=== PATIENT | female | born 1990 | race Caucasian/White ===

== ENCOUNTER 2023-09-24 08:29 | Emergency (ER) | payer SELFPAY ==
[2023-09-24 08:35] VITALS: BP 124/55; PULSE 77; RESP 18; TEMP 37.1; O2SAT 98; BMI 28.3
--- NOTE | 2023-09-24 08:40 | ED.GENADUL1 ---
HPI - General Adult General Chief complaint: Upper Respiratory Infection Stated complaint: SORE THROAT Time Seen by Provider: 09/24/23 08:30 Source: patient Mode of arrival: walk-in Limitations: no limitations History of Present Illness HPI narrative: 32-year-old female presents for sore throat. It started the night before last and it hurts more when she swallows. Her son is being seen for the same issue. No fever or vomiting. Related Data Allergies Allergy/AdvReac Type Severity Reaction Status Date / Time codeine Allergy Unknown Verified 09/24/23 08:35 Review of Systems ROS Narrative A ten point review of systems is negative except as noted above. PFSH PFSH Social History Smoking status: Never smoker Exam Narrative Exam Narrative: Nurses note and vital signs reviewed and patient is not hypoxic. General: The patient appears well and in no apparent distress. Patient is resting comfortably on cart. Skin: Warm, dry, no pallor noted. There is no rash noted. Head: Normocephalic, atraumatic Eye: Normal conjunctiva, no drainage Ears, Nose, Mouth, and Throat: oral mucosa is moist. Nares patent. minimal pharyngeal erythema. No exudate. Cardiovascular: Regular Rate and Rhythm Respiratory: Patient is in no distress, no accessory muscle use, lungs are clear to auscultation, no wheezing, rales or rhonchi Back: non-tender GI: soft and nontender Musculoskeletal: The patient has no evidence of calf tenderness, no pitting edema, symmetrical pulses noted bilaterally Neurological: A&O, normal speech Psychiatric: Cooperative Constitutional Vital Signs, click to edit/add: Last Vital Signs Temp 98.7 F 09/24/23 08:35 Pulse 77 09/24/23 08:35 Resp 18 09/24/23 08:35 BP 124/55 09/24/23 08:35 Pulse Ox 98 09/24/23 08:35 O2 Del Method Room Air 09/24/23 08:35 Course Vital Signs Vital signs: Vital Signs Temperature 98.7 F 09/24/23 08:35 Pulse Rate 77 09/24/23 08:35 Respiratory Rate 18 09/24/23 08:35 Blood Pressure 124/55 09/24/23 08:35 Pulse Oximetry 98 09/24/23 08:35 Oxygen Delivery Method Room Air 09/24/23 08:35 Temperature 98.7 F 09/24/23 08:35 Pulse Rate 77 09/24/23 08:35 Respiratory Rate 18 09/24/23 08:35 Blood Pressure 124/55 09/24/23 08:35 Pulse Oximetry 98 09/24/23 08:35 Oxygen Delivery Method Room Air 09/24/23 08:35 Medical Decision Making MDM Narrative Medical decision making narrative: Strep test is negative. Antibiotic not indicated. Treatment diagnosis and follow-up were discussed with the patient. Differential Diagnosis Differential Diagnosis: strep throat, viral pharyngitis, tonsillitis Lab Data Lab results reviewed: Yes I reviewed the patient's lab results Labs: Lab Results 09/24/23 Range/Units 08:43 Streptococcus Screen Negative Discharge Plan Discharge Chief Complaint: Upper Respiratory Infection Clinical Impression: Viral pharyngitis Patient Disposition: Home, Self-Care Time of Disposition Decision: 09:29 Condition: Good Mode of Transportation: Private Vehicle Instructions: Pharyngitis (ED) Stand Alone Forms: Portal Instructions Referrals: Physician,Non-Staff, MD [Primary Care Provider] - 1 week
[2023-09-24 09:08] LABS: Internal Control Within Normal Limits; Strep A Antigen Screen Negative
== END 2023-09-24 09:41 | disposition home or self-care (01) ==
PROVIDERS: Emergency Provider Emergency Medicine
DX: J02.9 Acute pharyngitis, unspecified (principal)
CPT/HCPCS: 87070; 87880; 99283

== ENCOUNTER 2024-03-30 22:03 | Emergency (ER) | payer OTHER, SELFPAY ==
[2024-03-30 22:09] VITALS: BP 114/77; PULSE 87; TEMP 36.8; O2SAT 96; BMI 28.3
--- NOTE | 2024-03-30 22:32 | ED_ITS ---
HPI - URI/Sore Throat General Chief Complaint: Upper Respiratory Infection Stated Complaint: URTI Time Seen by Provider: 03/30/24 22:22 Source: patient Limitations: no limitations History of Present Illness HPI Narrative: 33-year-old female presented for nasal congestion and drainage. She lost her sense of taste and was worried she might have COVID. She has 6 children and one of them has a heart defect and she wanted to be sure it is not COVID. No fever or productive cough or vomiting. Symptoms present for few days. Related Data Previous Rx's ?Medication ?Instructions ?Recorded fluticasone propionate 50 1 spray intranasal BID #16 grams 03/30/24 mcg/actuation nasal spray,suspension loratadine 5 mg-pseudoephedrine ER 1 tab PO Q12H PRN nasal congestion 03/30/24 120 mg tablet,extended #20 tabs release,12hr (Claritin-D 12 Hour) Allergies Allergy/AdvReac Type Severity Reaction Status Date / Time codeine Allergy Unknown Verified 03/30/24 22:11 Review of Systems ROS Narrative A ten point review of systems is negative except as noted above. PFSH PFSH Social History Smoking status: Never smoker Exam Narrative Exam Narrative: Nurses note and vital signs reviewed and patient is not hypoxic. General: The patient appears well and in no apparent distress. Patient is resting comfortably on cart. Skin: Warm, dry, no pallor noted. There is no rash noted. Head: Normocephalic, atraumatic Eye: Normal conjunctiva, no drainage Ears, Nose, Mouth, and Throat: oral mucosa is moist. Nares patent. No pharyngeal erythema or exudate. She has nasal congestion. Cardiovascular: Regular Rate and Rhythm Respiratory: Patient is in no distress, no accessory muscle use, lungs are clear to auscultation, no wheezing, rales or rhonchi Back: non-tender GI: Nontender Musculoskeletal: No joint swelling Neurological: Awake and alert Psychiatric: Cooperative Constitutional Vital Signs, click to edit/add: Last Vital Signs Temp 98.3 F 03/30/24 22:09 Pulse 87 03/30/24 22:09 Resp 18 03/30/24 22:09 BP 114/77 03/30/24 22:09 Pulse Ox 96 03/30/24 22:09 O2 Del Method Room Air 03/30/24 22:09 Course Vital Signs Vital signs: Vital Signs Temperature 98.3 F 03/30/24 22:09 Pulse Rate 87 03/30/24 22:09 Respiratory Rate 18 03/30/24 22:09 Blood Pressure 114/77 03/30/24 22:09 Pulse Oximetry 96 03/30/24 22:09 Oxygen Delivery Method Room Air 03/30/24 22:09 Temperature 98.3 F 03/30/24 22:09 Pulse Rate 87 03/30/24 22:09 Respiratory Rate 18 03/30/24 22:09 Blood Pressure 114/77 03/30/24 22:09 Pulse Oximetry 96 03/30/24 22:09 Oxygen Delivery Method Room Air 03/30/24 22:09 MDM - URI/Sore Throat MDM Narrative Medical decision making narrative: COVID test is negative. My clinical impression is that she has environmental allergies and should be treated symptomatically. Treatment diagnosis and follow-up were discussed with the patient. Differential Diagnosis Differential diagnosis: Likely upper respiratory infection and other (Allergies, COVID) Lab Data Attestation: I reviewed the patient's lab results. Labs: Lab Results 03/30/24 Range/Units 22:40 SARS-CoV-2 Ag (CV2AG) Negative (NEGATIVE) Discharge Plan Discharge Stand Alone Forms: Portal Instructions Chief Complaint: Upper Respiratory Infection Clinical Impression: Environmental allergies Patient Disposition: Home, Self-Care Time of Disposition Decision: 23:00 Condition: Good Mode of Transportation: Private Vehicle Prescriptions / Home Meds: New Claritin-D 12 Hour 5-120 mg tablet extended release 12 hr 1 tab PO Q12H PRN (Reason: nasal congestion) Qty: 20 0RF fluticasone propionate 50 mcg/actuation spray,suspension 1 spray intranasal BID Qty: 16 0RF Rx Instructions: administer into each nostril Print Language: Turkish Instructions: Allergies (ED), How to Use Nasal [place] (ED) Referrals: Physician,Non-Staff, MD [Primary Care Provider] - 1 week
[2024-03-30 22:57] LABS: SARS-CoV-2 Ag NEGATIVE (NEGATIVE)
[2024-03-30 23:04] VITALS: BP 120/76; PULSE 65; O2SAT 100
== END 2024-03-30 23:04 | disposition home or self-care (01) ==
PROVIDERS: Emergency Provider Emergency Medicine
DX: T78.49XA Other allergy, initial encounter (principal); Z20.822 Contact with and (suspected) exposure to COVID-19
CPT/HCPCS: 87811; 99283

== ENCOUNTER 2024-04-15 08:04 | Emergency (ER) | payer OTHER, SELFPAY ==
[2024-04-15 08:08] VITALS: BP 128/74; PULSE 73; TEMP 36.9; O2SAT 99; BMI 28.3
--- NOTE | 2024-04-15 08:19 | ECG_ITS ---
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
--- NOTE | 2024-04-15 08:19 | XR_ITS ---
The [address] [address] Patient Name: CORTEZ GARCIA MRN: [id number] date: 1990 Sex: F Assigned Patient Location: ER Current Patient Location: ED.MAIN Accession/Order Number: [id number] Exam Date: 04/15/2024 08:42 Report Date: 04/15/2024 09:04 At the request of: NAWAF RAYMUNDO Procedure: XR chest 1V EXAMINATION: XR chest 1V HISTORY: CP COMPARISON: No relevant comparison available. TECHNIQUE: Portable FINDINGS: LUNGS: No significant pulmonary parenchymal abnormalities. VASCULATURE: No increased pulmonary vasculature. PLEURA: No pneumothorax, effusion, or pleural thickening. CARDIAC: No cardiomegaly or cardiac silhouette abnormality. MEDIASTINUM: No visible mass or adenopathy. BONES: No fracture or visible bone lesion. OTHER: Negative. XR/XR chest 1V IMPRESSION: No acute cardiopulmonary process Electronically authenticated by: RONEN CARBALLO Date: 04/15/2024 09:04
--- NOTE | 2024-04-15 08:21 | ED_ITS ---
HPI - Chest Pain General Chief Complaint: Chest Pain Stated Complaint: CHEST PAIN Time Seen by Provider: 04/15/24 08:05 Source: patient Mode of arrival: walk-in History of Present Illness HPI narrative: 33-year-old female presents for chest pain. Its on the right side of her chest and she has had it since yesterday. It hurts more if she pushes on the area or moves in a particular way. She does not recall any injury or heavy lifting. No shortness of breath, left-sided pain, or back pain. It is moderate and sharp. Related Data Previous Rx's ?Medication ?Instructions ?Recorded ibuprofen 800 mg tablet 800 mg PO Q8H PRN pain #20 tabs 04/15/24 methocarbamol 500 mg tablet 500 mg PO Q8H PRN pain #20 tabs 04/15/24 Allergies Allergy/AdvReac Type Severity Reaction Status Date / Time codeine Allergy Unknown Verified 03/30/24 22:11 Review of Systems ROS Narrative A ten point review of systems is negative except as noted above. PFSH PFSH Social History Smoking status: Never smoker Exam Narrative Exam Narrative: Nurses note and vital signs reviewed and patient is not hypoxic. General: The patient appears well and in no apparent distress. Patient is resting comfortably on cart. Skin: Warm, dry, no pallor noted. There is no rash noted. Head: Normocephalic, atraumatic Eye: Normal conjunctiva, no drainage Ears, Nose, Mouth, and Throat: oral mucosa is moist. Nares patent. Cardiovascular: Regular Rate and Rhythm; no palpable tenderness on the left side. There is a focal area of tenderness to palpation on the right side of her chest which reproduces her pain. No crepitus. Respiratory: Patient is in no distress, no accessory muscle use, lungs are clear to auscultation, no wheezing, rales or rhonchi Back: non-tender GI: Soft and nontender Musculoskeletal: The patient has no evidence of calf tenderness, no pitting edema, symmetrical pulses noted bilaterally Neurological: A&O, normal speech Psychiatric: Cooperative Constitutional Vital Signs, click to edit/add: Last Vital Signs Temp 98.5 F 04/15/24 08:08 Pulse 73 04/15/24 08:08 Resp 15 04/15/24 08:08 BP 128/74 04/15/24 08:08 Pulse Ox 99 04/15/24 08:08 O2 Del Method Room Air 04/15/24 08:08 Course Vital Signs Vital signs: Vital Signs Temperature 98.5 F 04/15/24 08:08 Pulse Rate 73 04/15/24 08:08 Respiratory Rate 15 04/15/24 08:08 Blood Pressure 128/74 04/15/24 08:08 Pulse Oximetry 99 04/15/24 08:08 Oxygen Delivery Method Room Air 04/15/24 08:08 Temperature 98.5 F 04/15/24 08:08 Pulse Rate 73 04/15/24 08:08 Respiratory Rate 15 04/15/24 08:08 Blood Pressure 128/74 04/15/24 08:08 Pulse Oximetry 99 04/15/24 08:08 Oxygen Delivery Method Room Air 04/15/24 08:08 MDM - Chest Pain MDM Narrative Medical decision making narrative: Her workup including EKG and chest x-ray is negative. Her pain is completely reproducible on palpation. At this point I do not suspect pulmonary embolism and there is no evidence of heart disease or pneumothorax or pneumonia. She will be discharged home on Motrin and Robaxin. Treatment diagnosis and follow- up were discussed with the patient. My clinical impression is that this is chest wall pain. Differential Diagnosis Differential diagnosis: Likely pneumothorax, unstable angina pectoris, atypical chest pain, st elevation myocardial infarction, costochondritis and chest pain Imaging Data Chest x-ray: Radiologist's impression: ITS Impressions Chest X-Ray 04/15/24 08:19 IMPRESSION: No acute cardiopulmonary process Electronically authenticated by: RONEN CARBALLO Date: 04/15/2024 09:04 ECG Data Attestation: I personally reviewed and interpreted this ECG as follows: (EKG on my interpretation shows normal sinus rhythm with no acute change and rate of 74.) Discharge Plan Discharge Stand Alone Forms: Portal Instructions Chief Complaint: Chest Pain Clinical Impression: Chest wall pain Patient Disposition: Home, Self-Care Time of Disposition Decision: 09:50 Condition: Good Mode of Transportation: Private Vehicle Prescriptions / Home Meds: New methocarbamol 500 mg tablet 500 mg PO Q8H PRN (Reason: pain) Qty: 20 0RF ibuprofen 800 mg tablet 800 mg PO Q8H PRN (Reason: pain) Qty: 20 0RF Print Language: Senegalese Instructions: Chest Wall Pain (ED) Referrals: Physician,Non-Staff, [Primary Care Provider] - 1 week
--- OUTSIDE RECORDS SUMMARY | 2024-04-15 08:32 | XMS_ITS ---
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 Facility: Payers Date Payer Category Payer Unknown [id number] 1958 Medicaid [id number] Problems Problem Classification Problem Date Documented Da te Episodic/Chronic Inflammation; infection of eye (except that caused by tuberculosis or sexually transmitteddisease) (1 source) Unspecified conjunctivitis; Translations: [UNSPECIFIED CONJUNCTIVITIS] Onset: 03-19-2023 Episodic Other eye disorders (3 sources) Other specified disorders of eye and adnexa; Translations: [OTHER SPEC DISORDERS EYE AND ADNEXA] Onset: 03-18-2023 Episodic Substance-related disorders (1 source) Nicotine dependence, cigarettes, uncomplicated; Translations: [NICOTINE DEPEND CIGARETTES UNCOMP] Onset: 03-19-2023 Chronic Summary Purpose Family History No Family History Records Found Advance Directives No Advanced Directives Records Found Additional Source Comments INFORMATION SOURCE (unrecogn ized section and content) DATE CREATED AUTHOR 03/29/2023 [facility] FOR RECORDS PERTAINING TO PATIENTS WHO ARE OR HAVE BEEN ENROLLED IN A CHEMICAL DEPENDENCY/SUBSTANCEABUSE PROGRAM, SOME INFORMATION MAY BE OMITTED. This clinical summary was aggregated from multiple sources. Caution should be exercised in using it in the provision of clinical care. This summary normalizes information from multiple sources, and as a consequence, information in this document may materially change the coding, format and clinical context of patient data. In addition, data may be omitted in some cases. CLINICAL DECISIONS SHOULD BE BASED ON THE PRIMARY CLINICAL RECORDS. [facility] [employer] [facility]. provides no warranty or guarantee of the accuracy or completeness of information in this document.
[2024-04-15] MEDS: KETOROLAC TROMETHAMINE 60 MG/2 ML VIAL IM (08:49)
== END 2024-04-15 09:54 | disposition home or self-care (01) ==
PROVIDERS: Emergency Provider Emergency Medicine
DX: R07.89 Other chest pain (principal)
CPT/HCPCS: 71045; 93005; 96372; 99284; J1885

== ENCOUNTER 2024-07-02 10:47 | Emergency (ER) | payer SELFPAY ==
[2024-07-02 10:52] VITALS: BP 121/75; PULSE 87; TEMP 36.8; O2SAT 96; BMI 28.3
[2024-07-02 11:01] VITALS: O2SAT 96
--- NOTE | 2024-07-02 11:08 | ED_ITS ---
HPI HPI - General Adult General Chief complaint: Upper Respiratory Infection Stated complaint: CHEST CONGESTION, SORE THROAT Time Seen by Provider: 07/02/24 10:52 Source: patient Mode of arrival: walk-in Limitations: no limitations History of Present Illness HPI narrative: 33-year-old female presents for cough and shortness of breath. She states she developed some allergy symptoms a few days ago and has had nasal congestion. During the night she felt tightness in her chest and feels like she is wheezing but she is also worried about having pneumonia. LMP was 2 days ago. No fever o r vomiting. Related Data Previous Rx's ?Medication ?Instructions ?Recorded albuterol sulfate 90 mcg/actuation 2 inh inhalation Q4H PRN shortness 07/02/24 aerosol inhaler of breath or wheezing #8.5 grams benzonatate 100 mg capsule 100 mg PO TID PRN cough #20 caps 07/02/24 loratadine 5 mg-pseudoephedrine ER 1 tab PO Q12H PRN nasal congestion 07/02/24 120 mg tablet,extended #20 tabs release,12hr (Claritin-D 12 Hour) Allergies Allergy/AdvReac Type Severity Reaction Status Date / Time codeine Allergy Unknown Hives Verified 07/02/24 10:51 Opioid HPI Opioid Management Most Recent Opioid Data: Last Pain Scale 5 04/15/24 08:49 Review of Systems ROS Narrative A ten point review of systems is negative except as noted above. [facility] Medical History (Updated 07/02/24 @ 12:33 by Alvino Guzman MD) Asthma ?J45.909 - Unspecified asthma, uncomplicated (ICD-10) Social History Smoking status: Never smoker Little interest or pleasure in doing things: not at all Feeling down, depressed, or hopeless: not at all Exam Narrative Exam Narrative: Nurses note and vital signs reviewed and patient is not hypoxic. General: The patient appears well and in no apparent distress. Patient is resting comfortably on cart. Skin: Warm, dry, no pallor noted. There is no rash noted. Head: Normocephalic, atraumatic Eye: Normal conjunctiva, no drainage Ears, Nose, Mouth, and Throat: oral mucosa is moist. Nares patent. Nasal congestion present. No pharyngeal erythema or exudate. Cardiovascular: Regular Rate and Rhythm Respiratory: A few scattered rhonchi present, otherwise good air movement. Back: non-tender GI: Soft and nontender Musculoskeletal: The patient has no evidence of calf tenderness, no pitting edema, symmetrical pulses noted bilaterally Neurological: Awake and alert Psychiatric: Cooperative Constitutional Vital Signs, click to edit/add: Last Vital Signs Temp 98.3 F 07/02/24 10:52 Pulse 82 07/02/24 12:47 Resp 12 07/02/24 12:47 BP 120/68 07/02/24 12:47 Pulse Ox 98 07/02/24 12:47 O2 Del Method Room Air 07/02/24 12:47 Course Vital Signs Vital signs: Vital Signs Temperature 98.3 F 07/02/24 10:52 Pulse Rate 87 07/02/24 10:52 Respiratory Rate 14 07/02/24 10:52 Blood Pressure 121/75 07/02/24 10:52 Pulse Oximetry 96 07/02/24 10:52 Oxygen Delivery Method Room Air 07/02/24 10:52 Temperature 98.3 F 07/02/24 10:52 Pulse Rate 82 07/02/24 12:47 Respiratory Rate 12 07/02/24 12:47 Blood Pressure 120/68 07/02/24 12:47 Pulse Oximetry 98 07/02/24 12:47 Oxygen Delivery Method Room Air 07/02/24 12:47 Medical Decision Making MDM Narrative Medical decision making narrative: Chest x-ray shows no acute findings per radiologist. My clinical impression is that she has environmental allergy issues. She felt improved after aerosol treatment. Treatment diagnosis and follow-up were discussed with the patient. Differential Diagnosis Differential Diagnosis: Allergies, pneumonia, URI Imaging Data Chest x-ray: Radiologist's impression: ITS Impressions Chest X-Ray 07/02/24 11:08 IMPRESSION: No acute cardiopulmonary process Electronically authenticated by: RONEN CARBALLO Date: 07/02/2024 12:18 Discharge Plan Discharge Chief Complaint: Upper Respiratory Infection Clinical Impression: Environmental allergies Patient Disposition: Home, Self-Care Time of Disposition Decision: 12:33 Condition: Good Mode of Transportation: Private Vehicle Prescriptions / Home Meds: New benzonatate 100 mg capsule 100 mg PO TID PRN (Reason: cough) Qty: 20 0RF Claritin-D 12 Hour 5-120 mg tablet extended release 12 hr 1 tab PO Q12H PRN (Reason: nasal congestion) Qty: 20 0RF albuterol sulfate 90 mcg/actuation HFA aerosol inhaler 2 inh inhalation Q4H PRN (Reason: shortness of breath or wheezing) Qty: 8.5 0RF Print Language: Bulgarian Instructions: Allergies (ED) Referrals: Physician,Non-Staff, MD [Primary Care Provider] - 1 week Discharge Date/Time: 07/02/24 12:49
--- NOTE | 2024-07-02 11:08 | XR_ITS ---
The [address] [address] Patient Name: CORTEZ GARCIA MRN: [id number] date: 1990 Sex: F Assigned Patient Location: ER Current Patient Location: ED.MAIN Accession/Order Number: [id number] Exam Date: 07/02/2024 11:33 Report Date: 07/02/2024 12:18 At the request of: NAWAF RAYMUNDO Procedure: XR chest 1V EXAMINATION: XR chest 1V HISTORY: cough COMPARISON: 04/15/2024 TECHNIQUE: AP portable erect FINDINGS: LUNGS: No significant pulmonary parenchymal abnormalities. VASCULATURE: No increased pulmonary vasculature. PLEURA: No pneumothorax, effusion, or pleural thickening. CARDIAC: No cardiomegaly or cardiac silhouette abnormality. MEDIASTINUM: No visible mass or adenopathy. BONES: No fracture or visible bone lesion. OTHER: Negative. XR/XR chest 1V IMPRESSION: No acute cardiopulmonary process Electronically authenticated by: RONEN CARBALLO Date: 07/02/2024 12:18
--- OUTSIDE RECORDS SUMMARY | 2024-07-02 11:19 | XMS_ITS | CCD ---
Author Organization [facility] Inform ion Partnership [facility] Care Team Providers Care Senior Marketing Specialist Name Role Phone AMANDA .JAKUB Consulting Unavailabl e REQUEST, DR CHRISTIANSEN LISTED Primary Care Unavaila ble JAYSHREE ., DR LAGUNAS Attending Unavailable HAY ., DR LAGUNAS Admitting Unavailable Allergies Allergy Classification Reported Allergen(s) Allergy Type Date of Onset Reaction(s) Facility (1 source) Codeine Drug Allergy 10-12-2019 [facility] Repository Problems Problem Classification Problem Date Documented Da [...] [NICOTINE DEPEND CIGARETTES UNCOMP] Onset: 03-19-2023 Chronic Encounters Encounter Date Encounter Type Care Provider Facility Start: 03-18-2023 End: 03-18-2023 ambulatory JAKUB PATEL . Facility: Payers Date Payer Category Payer Unknown [id number] 1958 Medicaid [id number] Summary Purpose Family History No Family History Records Found Advance Directives No Advanced Directives Records Found Additional Source Comments INFORMATION SOURCE (unrecogn ized section and content) DATE CREATED AUTHOR 03/29/2023 [facility] FOR RECORDS PERTAINING TO PATIENTS WHO ARE [...] BE BASED ON THE PRIMARY CLINICAL RECORDS. [facility] [email or web address] [facility]. provides no warranty or guarantee of the accuracy or completeness of information in this document.
[2024-07-02] MEDS: ALBUTEROL SULFATE 2.5 MG/3 ML VIAL NEB IH (11:26)
[2024-07-02 11:28] VITALS: O2SAT 99
[2024-07-02 12:47] VITALS: BP 120/68; PULSE 82; O2SAT 98
== END 2024-07-02 12:49 | disposition home or self-care (01) ==
PROVIDERS: Emergency Provider Emergency Medicine
DX: T78.49XA Other allergy, initial encounter (principal)
CPT/HCPCS: 71045; 94640; 99283

== ENCOUNTER 2025-05-17 12:10 | Outpatient (REF) | payer OTHER, SELFPAY ==
--- OUTSIDE RECORDS SUMMARY | 2025-05-17 15:30 | XMS_ITS | Encounter Summary ---
Author Organization [facility] Address [address] [place] [address] Care Team Providers Care Stem Assembler Name Role Phone Cam Garcia MD Primary Care Provider Reason for Visit * Reason Comments EMBX Encounter Details Date Type Department Care Team ([facility] Contact Info) Description 05/17/2025 3:30 PM EDT Procedure Visit [facility] [address] [place] [address] Vaibhav Abreu DO [address] [place] [address] Irregular menstrual cycle Social History Tobacco Use Types Packs/Day Years Used Date Smoking Tobacco: Never Assessed Comments No Sex and Gender Information Value Date Recorded Sex Assigned at Not on file Legal Sex Female 11:17 AM EDT Gender Identity Not on file Sexual Orientation Not on file documented as of this encounter Last Filed Vital Signs Vital Sign Reading Time Taken Comments Blood Pressure 120/80 05/17/2025 4:04 PM EDT Pulse - - Temperature - - Respiratory Rate - - Oxygen Saturation - - Inhaled Oxygen Concentration - - Weight 67.6 kg (149 lb) 05/17/2025 4:04 PM EDT Height - - Body Mass Index 27.25 04/29/2025 8:33 AM EDT documented in this encounter Progress Notes * Barbara Byers NP - 05/17/2025 3:30 PM EDT Reason for Appointment: Patient ID: Karis Duval is a 34 y.o. female who presents for EMBX Patient presents today for a Endometrial Biopsy appointment. MEDICATIONS Current Outpatient Medications Medication Instructions FLUoxetine (PROZAC) 20 mg, Daily RT ALLERGIES Allergies Allergen Reactions Acetaminophen Hives PROBLEMS Active Ambulatory Problems Diagnosis Date Noted No Active Ambulatory Problems Resolved Ambulatory Problems Diagnosis Date Noted No Resolved Ambulatory Problems No Additional Past Medical History HISTORY PAST MEDICAL HISTORY SOCIAL HISTORY No past medical history on file. Social History Tobacco Use Smoking status: Not on file Smokeless tobacco: Not on file Substance Use Topics Alcohol use: Not on file Drug use: Not on file FAMILY HISTORY No family history on file. SURGICAL HISTORY Past Surgical History: Procedure Laterality Date LAPAROSCOPIC TUBAL LIGATION W/ FILCHIE CLIPS Bilateral 2020 Done in [place] REVIEW OF SYSTEMS Review of Systems: Review of Systems Constitutional: Negative. HENT: Negative. Eyes: Negative. Respiratory: Negative. Cardiovascular: Negative. Gastrointestinal: Negative. Genitourinary: Positive for menstrual problem, pelvic pain and vaginal bleeding. Musculoskeletal: Negative. Skin: Negative. Neurological: Negative. All other systems reviewed and are negative. Hematological: Negative. Endocrine: Negative. Allergic/Immunologic: Negative. OBJECTIVE Objective: Physical Exam Genitourinary: Genitourinary Comments: Endometrial biopsy with sample obtained. Patient tolerated well. Vitals: Estimated body mass index is 27.25 kg/m?? as calculated from the following: Height as of 04/29/25: 5' 2 . Weight as of this encounter: 149 lb. BP: 120/80 Patient's last menstrual period was 04/30/2025. ASSESSMENT & PLAN Assessment/Plan Encounter Diagnosis: ICD-10-CM 1. Irregular menstrual cycle N92.6 POCT , urine manually resulted Tissue exam Procedures EMBX: Patient was placed in dorsal lithotomy position with feet in stirrups. A sterile speculum was placed into the vagina and the cervix was visualized. The cervix was grasped with a single tooth tenaculum. The endometrial pipette was placed through the cervix into the uterus, endometrial curettage was performed and sampling was obtained, endometrial curettings were placed in formalin, and single tooth tenaculum was removed. Excellent hemostasis was assured. All instruments were removed from vagina. Patient reports history of filshie clip placement. Discussed procedure with patient in regards to surgical management with Ablation with Salpingectomy. Patient is doing well but has complaints of bleeding and pelvic pain. Patient has tried hormone therapy in the past but all attempts to subside patients issues have failed. I have discussed conservative management vs. surgical management with the patient in detail and patient desires surgical management at this time. Patient will undergo Endometrial Ablation with [place] and bilateral salpingectomy. Documented by Barbara Byers NP on behalf of: Vaibhav Abreu DO documented in this encounter Plan of Treatment Upcoming Encounters Date Type Department Care Team (Late st Contact Info) Description 06/02/2025 3:40 PM EDT Office Visit [facility] [address] [place] [address] Vaibhav Abreu DO [address] [place] [address] Scheduled Orders Name Type Priority Associated Diagnoses Orde r Schedule Tissue exam Pathology and Cytology Routine Irregular menstrual cycle Ordered: 05/17/2025 documented as of this encounter Procedures Procedure Name Priority Date/Time Associated Diagnosis Comments POCT , URINE Routine 05/17/2025 4:13 PM EDT Irregular menstrual cycle documented in this encounter Results * POCT , urine manually resulted (05/17/2025 4:13 PM EDT) Preg Test, Ur Negative Negative Urine 05/17/2025 4:13 PM EDT Vaibhav Abreu DO POINT OF CARE TEST ENTER/EDIT OR DERABLES Final Result documented in this encounter Visit Diagnoses Diagnosis Irregular menstrual cycle documented in this encounter Care Teams Stem Assembler Relationship Specialty Start Date End Date Cam Garcia MD [address] [place] [address] PCP - General Family Medicine 04/29/25 documented as of this encounter
--- OUTSIDE RECORDS SUMMARY | 2025-05-19 12:14 | XMS_ITS | Encounter Summary ---
Author Organization [facility] [employer] [facility] Address [id number] [address] [place] [address] Care Team Providers Care Waste Cotton Cleaner Name Role Phone Cam Garcia Primary Care Provider [phone] Encounter Details Date Type Department Care Team (Late st Contact Info) Description 10/05/2024 Telephone [facility] - Family Medicine [address] [place] [phone] Brittnee Lopez CMA Social History Tobacco Use Types Packs/Day Years Used Date Smoking Tobacco: Every Day Cigarettes 0.2 6.1 Started: 10/21/2003; Last attempted to quit: 10/21/2008 Smokeless Tobacco: Never Comments:Off and on smoker f rom [id number]. She would stop smoking with her pregnancies then restart Alcohol Use Standard Drinks/Week Comments Yes 0 (1 standard drink = 0.6 oz pur e alcohol) occasional [employer] Utilities Answer Date Recorded In the past 12 months has [employer] electric, gas, oil, or water company threatened to shut off services in your home? No 07/15/2024 Social Connection and Isolat ion Panel [NHANES] Answer Date Recorded In a typical week, how many times do you talk on the phone with family, friends, or neighbors? More than three times a week 07/15/2024 How often do you get togethe r with friends or relatives? Twice a week 07/15/2024 How often do you attend chur ch or christianity services? Never 07/15/2024 Do you belong to any clubs o r organizations such as denominational groups, unions, fraternal or athletic groups, or school groups? No 07/15/2024 How often do you attend meet ings of the clubs or organizations you belong to? Never 07/15/2024 Are you , , di vorced, , never , or living with a partner? 07/15/2024 AUDIT-C Answer Date Recorded Q1: How often do you have a drink containing alc ohol? 2-4 times a month 07/15/2024 Q2: How many drinks containi ng alcohol do you have on a typical day when you are drinking? 3 or 4 07/15/2024 Q3: How often do you have si x or more drinks on one occasion? Never 07/15/2024 Overall Financial Resource Strain (CARDIA) Answe r Date Recorded How hard is it for you to pa y for the very basics like food, housing, medical care, and heating? Not hard at all 07/15/2024 PHQ-2 Answer Date Recorded Total Score 11 07/15/2024 [facility] ional [facility] - Occupational Stress Questionnaire Answer Date Recorded Do you feel stress - tense, restless, nervous, or anxious, or unable to sleep at night because your mind is troubled all the time - these days? Rather much 07/15/2024 Exercise Vital Sign Answer Date Recorde d On average, how many days pe r week do you engage in moderate to strenuous exercise (like a brisk walk)? 3 days 07/15/2024 On average, how many minutes do you engage in exercise at this level? 30 min 07/15/2024 PRAPARE - Transportation Answer Date Re corded In the past 12 months, has l ack of transportation kept you from medical appointments or from getting medications? No 06/22 In the past 12 months, has l ack of transportation kept you from meetings, work, or from getting things needed for daily living? No 07/15/2024 Housing Instability Answer Date Recorde d Are you worried or concerned that in the next two months you may not have stable housing that you own, rent or stay in as a part of a household? No 07/15/2024 Childcare Answer Date Recorded Do problems getting child ca re make it difficult for you to work or study? No 07/15/2024 Employment Answer Date Recorded Do you need help finding a [facility] career center and/or a training program? No 07/15/2024 Hunger Screening Answer Date Recorded Within the past 12 months we worried whether our food would run out before we got money to buy more. Sometimes True 024 Within the past 12 months th e food we bought just didn't last and we didn't have money to get more. Sometimes True 07/15/2024 Purpose - Life Answer Date Recorded I have a purpose and direction in my life. Stron gly Agree 07/15/2024 Comments Unknown Sex and Gender Information Value Date Recorded Sex Assigned at Not on file Legal Sex Female 11:48 AM EDT Gender Identity Not on file Sexual Orientation Not on file documented as of this encounter Miscellaneous Notes * Telephone Encounter - Brittnee Lopez CMA - 10/05/2024 10:05 AM EST ----- Message from Dr. Cam Garcia DO sent at 10/05/2024 10:01 AM EST ----- Her pulmonary function study was essentially normal but when she did use a bronchodilator it did help so she can use the albuterol as needed for now. Keep follow up appointment in the spring I called pt and called both numbers on file could not leave message. It said number had be disconnected documented in this encounter Plan of Treatment Upcoming Encounters Date Type Department Care Team (Late st Contact Info) Description 06/03/2025 9:00 AM EDT Office Visit [facility] - Family Medicine [address] [place] [address] Cam Garcia DO [address] [place] [address] documented as of this encounter Visit Diagnoses Not on filedocumented in this encounter Additional Health Concerns Assessment Noted Time PHQ-9 Depression Total Score: 11 024 10:12 AM EDT documented as of this encounter Care Teams Waste Cotton Cleaner Relationship Specialty Start Date End Date Cam Garcia DO [address] [place] [address] PCP - General Family Medicine 07/15/24 documented as of this encounter
--- OUTSIDE RECORDS SUMMARY | 2025-05-19 12:14 | XMS_ITS | Encounter Summary ---
Author Organization [facility] [facility] Address [id number] [address] [place] [address] Care Team Providers Care Double Head Machine Operator Name Role Phone Cam Garcia Primary Care Provider Encounter Details Date Type Department Care Team (Late st Contact Info) Description 01/13/2025 Telephone [facility] - Family Medicine [address] [place] [phone] Brittnee Lopez CMA Social History Tobacco Use Types Packs/Day Years Used Date Smoking Tobacco: Every Day Cigarettes 0.2 6.1 Started: 10/21/2003; Last attempted to quit: 10/21/2008 Smokeless Tobacco: Never Comments:Off and on smoker f rom [id number]. She would stop smoking with her pregnancies then restart Alcohol Use Standard Drinks/Week Comments Yes 0 (1 standard drink = 0.6 oz pur e alcohol) occasional [facility] Utilities Answer Date Recorded In the past 12 months has [employer] electric, gas, oil, or water company threatened [...] often do you attend chur ch or orthodoxy services? Never 07/15/2024 Do you belong to any clubs o r organizations such as latter day groups, unions, fraternal or athletic groups, or [...] Answer Date Recorded Total Score 11 07/15/2024 [facility] of Occupat ional Health - Occupational Stress [...] Recorded Do you need help finding a [facility] career center and/or a training program? [...] Telephone Encounter - Brittnee Lopez CMA - 01/13/2025 3:20 PM EDT Prescription sent in. She is due for a wellness anytime. She was only seen once for new patient visit back in June documented in this encounter Plan of Treatment Upcoming Encounters Date Type Department Care Team (Late st Contact Info) Description 06/03/2025 9:00 AM EDT Office Visit [facility] - [facility] Medicine [address] [place] [address] Cam Garcia DO [address] [facility] [place] [address] documented as of this encounter Visit Diagnoses Not on filedocumented in this encounter Additional Health Concerns Assessment Noted Time PHQ-9 Depression Total Score: 11 024 10:12 AM EDT documented as of this encounter Care Teams Double Head Machine Operator Relationship Specialty Start Date End Date Cam Garcia DO [address] [facility] [place] [address] PCP - General Family Medicine 07/15/24 documented as of this encounter
--- OUTSIDE RECORDS SUMMARY | 2025-05-19 12:14 | XMS_ITS | Clinical Summary ---
Author Organization [facility] Address [address] [place] [address] Care Team Providers Care Bilingual Speech Language Pathologist Name Role Phone Cam Garcia MD Primary Care Provider [phone] Allergies Active Allergy Reactions Criticality Noted Date Comments Acetaminophen Hives 07/15/2024 Medications FLUoxetine (PROzac) 20 MG capsule Take 20 mg by mouth in the morning. 03/31/2025 Active Encounters Date Type Department Care Team Description 05/17/2025 3:30 PM EDT [place] [address] Vaibhav Abreu, Irregular menstrual cycle 04/29/2025 8:50 AM EDT [place] [address] Vaibhav Abreu, Irregular periods/menstrual cycles; PCOS (polycystic ovarian syndrome) 04/29/[address]amboo [address] [facility] [place] [address] Vaibhav Abreu DO 04/28/2025 Travel from Last 3 Months Social History Tobacco Use Types Packs/Day Years Used Date Smoking Tobacco: Never Assessed Comments No Sex and Gender Information Value Date Recorded Sex Assigned at Not on file Legal Sex Female 11:17 AM EDT Gender Identity Not on file Sexual Orientation Not on file Last Filed Vital Signs Vital Sign Reading Time Taken Comments Blood Pressure 120/80 05/17/2025 4:04 PM EDT Pulse - - Temperature - - Respiratory Rate - - Oxygen Saturation - - Inhaled Oxygen Concentration - - Weight 67.6 kg (149 lb) 05/17/2025 4:04 PM EDT Height 157.5 cm (5' 2 ) 04/29/2025 8:33 AM EDT Body Mass Index 27.25 04/29/2025 8:33 AM EDT Plan of Treatment Upcoming Encounters Date Type Department Care Team (Late st Contact Info) Description 06/02/2025 3:40 PM EDT Office Visit [facility] [address] [place] [phone] Vaibhav Abreu DO [address] [place] [address] Procedures Procedure Name Priority Date/Time Associated Diagnosis Comments POCT , URINE Routine 05/17/2025 4:13 PM EDT Irregular menstrual cycle from Last 3 Months Results * POCT , urine manually resulted (05/17/2025 4:13 PM EDT) Preg Test, Ur Negative Negative Urine 05/17/2025 4:13 PM EDT Vaibhav Abreu DO POINT OF CARE TEST ENTER/EDIT OR DERABLES Final Result from Last 3 Months Insurance [employer] Care Teams Bilingual Speech Language Pathologist Relationship Specialty Start Date End Date Cam Garcia MD [address] [facility] [place] [address] PCP - General Family Medicine 04/29/25
--- OUTSIDE RECORDS SUMMARY | 2025-05-19 12:23 | XMS_ITS | CCD ---
Author Organization [facility] Partnership [facility] Care Team Providers Care Tie Sawyer Name Role Phone JAKUB BURGRE Consulting Unavailabl e REQUEST, DR CHRISTIANSEN LISTED Primary Care Unavaila lucas MARTELL ., DR LAGUNAS Attending Unavailable JAYSHREE Ryan, DR LAGUNAS Admitting Unavailable Cam Garcia DO Primary Care Provider [phone] Cam Garcia DO Primary Care Provider Cam Garcia MD Primary Care Provider [phone] KRIS ABREU Attending Unavailable KRIS ABREU Attending Unavailable Kris Abreu DO Attending Provider Allergies Allergy Classification Reported Allergen(s) Allergy Type Date of Onset Reaction(s) Facility (1 source) Codeine Drug Allergy 9 [facility] Repository (5 sources) Tylenol-Codeine #2 Propensity to adverse reactions to drug 4 [facility] (3 sources) Acetaminophen Drug Allergy 4 [facility] Medications Current Medications Medication Drug Class(es) Dates Sig (Normalized) Sig (Original) albuterol-budesoni de (AIRSUPRA) 90-80 mcg/actuation HFA aerosol inhaler (2 sources) Start: 03-31-2025 take 2 puff(s) by inhalation every four hours as needed albuterol-budesonid e (AIRSUPRA) 90-80 mcg/actuation HFA aerosol inhaler Indications: Mild intermittent asthma without complication Inhale 2 puffs every 4 (four) hours as needed (wheeze, shortness of breath). 10.7 g 1 03/31/2025 Active FLUoxetine 20 mg oral capsule (11 sources) Serotonin Reuptake Inhibitor Start: 03-31-2025 take 1 capsule by mouth in the morning FLUoxetine (PROzac) 20 MG capsule Take 20 mg by mouth in the morning. 03/31/2025 Active Start: 07-15-2024 End: 03-31-2025 take 1 capsule by mouth in the morning FLUoxetine (PROzac) 10 mg capsule Take 1 capsule (10 mg total) by mouth in the morning. 30 capsule 1 01/12/2025 03/31/2025 Discontinued (Dose adjustment) Completed/Discontinued Medications Medication Drug Class(es) Dates Sig (Normalized) Sig (Original) [id number] 200 actuat albuterol 0.09 mg/actuat metered dose inhaler (5 sources) beta2-Adrenergic Agonist Start: 01-12-2025 End: 03-31-2025 take 2 puff(s) by inhalation every four hours as needed for wheezing albuterol (PROVENTIL HFA;VENTOLIN HFA) 90 mcg/actuation inhaler Inhale 2 puffs every 4 (four) hours as needed for wheezing or shortness of breath. 18 g 01/12/2025 03/31/2025 Discontinued (Therapy completed) Start: 07-04-2024 End: 01-12-2025 take 2 puff(s) by inhalation every four hours as needed albuterol (PROVENTIL HFA;VENTOLIN HFA) 90 mcg/actuation inhaler Inhale 2 puffs every 4 (four) hours as needed. 07/04/2024 01/12/2025 Discontinued (Reorder) Problems Active Problems Problem Classification Problem Date Documented Da te Episodic/Chronic Anxiety disorders (4 sources) Anxiety; Translations: [Anxiety disorder, unspecified] Onset: 03-31-2025 07-15-2024 Chronic Asthma (3 sources) Reactive airway disease; Translations: [Unspecified asthma, uncomplicated] 07-15-2024 Chronic Inflammation; infection of eye (except that caused by tuberculosis or sexually transmitteddisease) (1 source) Unspecified conjunctivitis; Translations: [UNSPECIFIED CONJUNCTIVITIS] Onset: 03-19-2023 Episodic Menstrual disorders (11 sources) Dysmenorrhea; Translations: [Menorrhagia] Onset: 03-31-2025 03-31-2025 Chronic Mood disorders (4 sources) Moderate major depression ; Translations: [Major depressive disorder, single episode, moderate] Onset: 03-31-2025 07-15-2024 Chronic Other endocrine disorders (2 sources) Polycystic ovary syndrome; Translations: [Polycystic ovarian syndrome] 04-29-2025 Chronic Other eye disorders (3 sources) Other specified disorders of eye and adnexa; Translations: [OTHER SPEC DISORDERS EYE AND ADNEXA] Onset: 03-18-2023 Episodic Other nutritional; endocrine; and metabolic disorders (1 source) Body mass index 25-29 - overweight; Translations: [Overweight] 03-31-2025 Episodic Substance-related disorders (5 sources) Nicotine dependence, cigarettes, uncomplicated; Translations: [Cigarette smoker ] Onset: 03-19-2023 07-15-2024 Chronic Past or Other Problems Problem Classification Problem Date Documented Da te Episodic/Chronic Mood disorders (5 sources) Mood disorders Onset: 07-15-2024 Resolved: 03-31-2025 07-15-2024 Other nutritional; endocrine; and metabolic disorders (1 source) Overweight; Translations: [Overweight] 07-15-2024 Episodic Unclassified (2 sources) Onset: 03-31-2025 03-31-2025 Results Test Name Value Interpretation Reference Range Facil ity HCG ( test) Ql (U)o n 05-17-2025 Interpretation and review of laboratory results Normal [facility] Healthcare Preg Test, Ur Negative Negative [facility] care [facility] Healthcar e Comprehensive metabolic pane nael 03-31-2025 Albumin [Mass/Vol] 4.7 g/dL 3.2 - 5.3 g/dL Pr [facility] ALP [Catalytic activity/Vol] 63 U/L 39 - 130 U/L [facility] ALT No additional P-5'-P [Catalytic activity/Vol] 12 U/L NINF - 31 U/L [facility] Anion gap [Moles/Vol] 11 mmol/L 5 - 15 mmol/L [facility] AST [Catalytic activity/Vol] 16 U/L NINF - 41 U/L [facility] Bilirubin [Mass/Vol] 0.2 mg/dL Low 0.3 - 1.2 mg/dL [facility] Calcium [Mass/Vol] 9.9 mg/dL 8.5 - 10.5 mg/dL [facility] Chloride [Moles/Vol] 105 mmol/L 98 - 109 mmol/L [facility] CO2 [Moles/Vol] 23 mmol/L 22 - 32 mmol/L [facility] Creatinine [Mass/Vol] 0.66 mg/dL 0.40 - 1.00 mg/dL [facility] Comment on above: METHOD TRACEABLE TO IDMS STANDARD EGFR Non-Race Dependent - PINF [facility] Comment on above: Reported eGFR is bas ed on the CKD-EPI 2020 equation that does not use a race coefficient. Glucose [Mass/Vol] 91 mg/dL 65 - 99 mg/dL [facility] Potassium [Moles/Vol] 4.2 mmol/L 3.5 - 5.0 mmol /L [facility] Protein [Mass/Vol] 7.5 g/dL 6.0 - 8.0 g/dL [facility] Sodium [Moles/Vol] 139 mmol/L 134 - 146 mmol/L [facility] Urea nitrogen [Mass/Vol] 16 mg/dL 5 - 23 mg/dL [facility] Lipid profileon 03-31-2025 Cholesterol [Mass/Vol] 204 mg/dL High 150 - 200 mg/dL [facility] Cholesterol in HDL [Mass/Vol] 63 mg/dL 39 - PINF mg/dL [facility] Comment on above: HDL <40 mg/dL - High Risk HDL > or = 40mg/dL- Desirable HDL >60 mg/dL - Negative Risk Cholesterol in HDL [Mass/Vol] 3.2 mg/dL 1.0 - 5.0 [facility] Cholesterol in LDL [Mass/Vol] 108 mg/dL NINF - 130 mg/dL [facility] Comment on above: LDL <100 mg/dL - Dani irable LDL >160 mg/dL - High Risk Cholesterol in VLDL [Mass/Vol] 33 mg/dL High 0 - 30 mg/dL [facility] Triglyceride [Mass/Vol] 163 mg/dL High 27 - 150 mg/dL [facility] No Panel Informationon 03-31 Interpretation and review of laboratory results [facility]normal [facility] System Vital Signs Date Time Vital Sign Value Performing Clinician Facility 05-17-2025 16:04-0400 Body mass index (BMI) [Ratio] 27.25 kg/m2 Kris Abreu DO Work Phone: [facility] 05-17-2025 16:04-0400 Body weight 67.59 kg Kris Lois DO Work Phone: [facility] 05-17-2025 16:04-0400 Diastolic blood pressure 80 mm[Hg] Kris Lois DO Work Phone: [facility] 05-17-2025 16:04-0400 Systolic blood pressure 120 mm[Hg] Kris Lois DO Work Phone: [facility] 04-29-2025 08:33-0400 Body height 157.5 cm Kris Lois DO Work Phone: [facility] 04-29-2025 08:33-0400 Body mass index (BMI) [Ratio] 27.07 kg/m2 Kris Lois DO Work Phone: [facility] 04-29-2025 08:33-0400 Body weight 67.13 kg Kris Lois DO Work Phone: [facility] 04-29-2025 08:33-0400 Diastolic blood pressure 72 mm[Hg] Kris Lois DO Work Phone: [facility] 04-29-2025 08:33-0400 Systolic blood pressure 118 mm[Hg] Kris Lois DO Work Phone: [facility] 03-31-2025 08:53-0400 Body height 157.5 cm Cam Furlong DO Work Phone: [facility] 03-31-2025 08:53-0400 Body mass index (BMI) [Ratio] 27.21 kg/m2 Cam Furlong DO Work Phone: [facility] 03-31-2025 08:53-0400 Body temperature 98.2 [degF] Cam Furlong DO Work Phone: [facility] 03-31-2025 08:53-0400 Body weight 67.5 kg Cam Furlong DO Work Phone: [facility] [employer] [facility] 03-31-2025 08:53-0400 Diastolic blood pressure 60 mm[Hg] Cam Furlong DO Work Phone: [facility] [employer] [facility] 03-31-2025 08:53-0400 Heart rate 88 /min Cam Furlong DO Work Phone: [facility] [employer] 03-31-2025 08:53-0400 Respiratory rate 20 /min Cam Furlong DO Work Phone: [facility] 03-31-2025 08:53-0400 SaO2% (BldA) [Mass fraction] 98 % Cam Furlong DO Work Phone: [facility] 03-31-2025 08:53-0400 Systolic blood pressure 108 mm[Hg] Cam Furlong DO Work Phone: [facility] 07-15-2024 10:20-0400 Body height 157.5 cm Cam Furlong DO Work Phone: [facility] [employer] [facility] 07-15-2024 10:20-0400 Body mass index (BMI) [Ratio] 28.53 kg/m2 Cam Furlong DO Work Phone: [facility] 07-15-2024 10:20-0400 Body temperature 98.49 [degF] Cam Furlong DO Work Phone: [facility] 07-15-2024 10:20-0400 Body weight 70.76 kg Cam Furlong DO Work Phone: [facility] [employer] [facility] 07-15-2024 10:20-0400 Diastolic blood pressure 70 mm[Hg] Cam Furlong DO Work Phone: [facility] 07-15-2024 10:20-0400 Heart rate 85 /min Cam Furlong DO Work Phone: [facility] 07-15-2024 10:20-0400 SaO2% (BldA) [Mass fraction] 95 % Cam Garcia DO Work Phone: [facility] 07-15-2024 10:20-0400 Systolic blood pressure 112 mm[Hg] Cam [facility] En[facility]ters Encounter Date Encounter Type Care Provider Facility Start: 05-17-2025 End: 05-17-2025 Departed Referred Kris Lois -LAB [facility] Start: 05-17-2025 End: 05-17-2025 ambulatory KRIS LOIS Not Available Start: 05-17-2025 End: 05-17-2025 Patient encounter procedure Kris Lois DO Work Phone: [facility] Comment on above: Irregular menstrual cycle Start: 04-29-2025 End: 04-29-2025 Bamboo flowsheet Kris Lois DO Work Phone: [facility] Start: 04-29-2025 End: 04-29-2025 Bamboo flowsheet Kris Lois DO Work Phone: [facility] Start: 04-29-2025 End: 04-29-2025 Office outpatient visit 15 minutes Kris Lois DO Work Phone: [facility] Comment on above: Irregular periods/me nstrual cycles; PCOS (polycystic ovarian syndrome) Start: 04-29-2025 End: 04-29-2025 ambulatory KRIS LOIS Not Available Start: 04-02-2025 End: 04-12-2025 Telephone encounter Brittnee Lopez CMA [facility] Physician s Internal Medicine - Family Medicine Start: 03-31-2025 End: 03-31-2025 Patient encounter status Cam Garcia DO [facility] Start: 03-31-2025 End: 03-31-2025 Periodic preventive med est patient 18-39 yrs Cam Garcia DO Work Phone: [facility] Internal Medicine - Family Medicine Comment on above: Well adult health ch david (Primary Dx); Dysmenorrhea; Anxiety; Cigarette smoker; Menorrhagia with regular cycle; Mild major depression; Mild intermittent asthma without complication; Overweight (BMI 25.0-29.9) Start: 01-12-2025 End: 01-12-2025 Refill Holly Adam [employer] [facility] Start: 09-01-2024 End: 09-01-2024 Refill Cam Garcia DO Work Phone: [facility] Internal Medicine - Family Medicine Start: 07-15-2024 End: 07-15-2024 Office outpatient new 45 minutes Cam Garcia DO Work Phone: [facility] Internal Medicine - Family Medicine Comment on above: Anxiety (Primary Dx) ; Overweight; Cigarette smoker; Moderate major depression (CMS-HCC); Reactive airway disease without complication, unspecified asthma severity, unspecified whether persistent Start: 03-18-2023 End: 03-18-2023 ambulatory PA CIELO PATEL . Facility: Procedures Date Procedure Procedure Detail Performing Clinician Start: 05-17-2025 Urine test visual color cmprsn meths Kris Lois DO Work Phone: Start: 03-31-2025 Comprehensive metabo lic panel Cam Garcia DO Work Phone: Start: 03-31-2025 Lipid panel Cam almarazlorenaldo DO Work Phone: Start: 03-31-2025 Adult depression scr eening assessment Cam Easonng DO Work Phone: Start: 07-15-2024 Adult depression scr eening assessment Cam Garcia DO Work Phone: Plan of Treatment Date Care Activity Detail Author Start: 09-30-2026 Tobacco Counseling Tobacco Counselin bhavin [facility] Start: 03-31-2026 Adult BMI Follow Up Plan Adult BMI F ollow Up Plan [facility] Start: 03-31-2026 Adult BMI Screening Adult BMI Screen ing [facility] Start: 03-31-2026 Depression Screening Depression Scre ening [facility] Start: 03-31-2026 Tobacco Screening Tobacco Screening [facility] Start: 07-15-2025 Adult BMI Screening Adult BMI Screen ing [facility] Start: 07-15-2025 Depression Screening Depression Scre ening [facility] Start: 07-15-2025 Tobacco Screening Tobacco Screening [facility] Start: 06-21-2025 Influenza vaccination Influenza Vacc ine [facility] Start: 06-03-2025 End: 06-03-2025 Patient encounter procedure 06/03/2025 9:00 AM EDT Office Visit [facility] Internal Medicine - Family Medicine [address] [place] [address] Cam Garcia, [address] [place] [address] [facility] Internal Medicine - Family [facility] Start: 06-02-2025 End: 06-02-2025 Patient encounter procedure [facility] Start: 05-17-2025 End: 05-17-2025 Patient encounter procedure 05/17/2025 3:30 PM EDT Procedure Visit [facility] [address] [place] [id number] Kris Abreu DO [address] [place] [address] [facility] Start: 04-29-2025 End: 04-29-2026 DHEA DHEA Lab Routine Irregular periods/menstrual cycles Expected: 04/29/2025 (Approximate), Expires: 04/29/2026 [facility] Comment on above: Expected: 04/29/2025 (Approximate), Expires: 04/29/2026 Start: 04-29-2025 End: 04-29-2026 US Pelvis US Pelvis w/ TV Imaging Routine Irregular periods/menstrual cycles Expected: 04/29/2025, Expires: 04/29/2026 [facility] Comment on above: Expected: 04/29/2025 , Expires: 04/29/2026 Start: 04-29-2025 End: 04-29-2025 Patient encounter procedure 04/29/2025 8:50 AM EDT Office Visit [facility] [address] [phone] Kris Abreu DO [address] [place] [address] Arrived [facility] Comment on above: Arrived Start: 01-18-2025 End: 01-18-2025 Patient encounter procedure 01/18/2025 4:15 PM EDT Office Visit [facility] Internal Medicine - Family Medicine [address] [place] [address] Cam Garcia, [address] [place] [address] [facility] Internal Medicine - Family Medicine Start: 06-21-2024 Influenza vaccination Influenza Vacc ine [facility] Start: 2012 Screening for malign ant neoplasm of cervix Pap Smear [facility] Start: 2010 DTaP,Tdap and Td Vaccines (1 - Tdap) DTaP,Tdap and Td Vaccines (1 - Tdap) [facility] Start: 2009 Adult BMI Follow Up Plan Adult BMI F ollow Up Plan [facility] Start: 1991 Tobacco Counseling Tobacco Counselin g [facility] CBC W Auto Different ial panel - Blood CBC and differential Lab Routine Irregular periods/menstrual cycles Ordered: 04/29/2025 [facility] Comment on above: Ordered: 04/29/2025 DHEA-sulfate DHEA-sulfate Lab Routine Irregular periods/menstrual cycles Ordered: 04/29/2025 [facility] Healthcare Comment on above: Ordered: 04/29/2025 Follicle stimulating hormone Follicle stimulating hormone Lab Routine Irregular periods/menstrual cycles Ordered: 04/29/2025 [facility] Comment on above: Ordered: 04/29/2025 hCG, quantitative, hCG, quantitative, Lab Routine Irregular periods/menstrual cycles Ordered: 04/29/2025 [facility] Work Phone: Comment on above: Ordered: 04/29/2025 Hemoglobin A1c/Hemoglobin.total in Blood Hemoglobin A1c Lab Routine Irregular periods/menstrual cycles Ordered: 04/29/2025 [facility] Comment on above: Ordered: 04/29/2025 Luteinizing hormone Luteinizing hormone Lab Routine Irregular periods/menstrual cycles Ordered: 04/29/2025 [facility] Comment on above: Ordered: 04/29/2025 End: 07-15-2025 Pulmonary function test Complete PFT w/ BD (Spirometry (Flow Volume Loop) pre/post short acting bronchodilator w/ DLCO (diffusion study) and Lung Volume) Pulmonary function test Complete PFT w/ BD (Spirometry (Flow Volume Loop) pre/post short acting bronchodilator w/ DLCO (diffusion study) and Lung Volume) PFT Routine Reactive airway disease without complication, unspecified asthma severity, unspecified whether persistent 1 Occurrences starting 07/15/2024 until 07/15/2025 [facility] Work Phone: Comment on above: 1 Occurrences starti ng 07/15/2024 until 07/15/2025 Thyrotropin [Units/volume] in Serum or Plasma TSH Lab Routine Irregular periods/menstrual cycles Ordered: 04/29/2025 [facility] Comment on above: Ordered: 04/29/2025 Thyroxine (T4) free [Mass/volume] in Serum or Plasma T4, free Lab Routine Irregular periods/menstrual cycles Ordered: 04/29/2025 [facility] Comment on above: Ordered: 04/29/2025 Tissue exam Tissue exam Path ology and Cytology Routine Irregular menstrual cycle Ordered: 05/17/2025 [facility] Work Phone: Comment on above: Ordered: 05/17/2025 Payers Date Payer Category Payer Private Health Insurance [facility] MEDICAID [id number] 2025 Medicaid [id number] 2024 Medicaid [employer] [id number] 2024 Medicaid [id number] 1991 Unknown [id number] 1991 Unknown [id number] 1991 Unknown [id number] 1959 Medicaid [id number] Social History Date Type Detail Facility Start: 10-21-2003 [facility] [employer] [facility] Start: 10-21-2003 End: 10-21-2008 History of tobacco use Cigarette Smoker [facility] [employer] [facility] Start: 07-15-2024 End: 03-31-2025 Cigarettes smoked current (pack per day) - [facility] Start: 07-15-2024 Tobacco use and exposure Smokeless tobacco non-user [facility] Start: 07-15-2024 End: 03-31-2025 Alcoholic beverage intake Current drinker of alcohol (finding) [facility] Start: 07-15-2024 End: 03-31-2025 [facility] Utilities [facility] Has the electric, [employer], oil, or water company threatened to shut off services in your home in past 12Mo No [facility] Are you now , , , , never or living with a partner? [facility] How often to you hav e a drink containing alcohol? 2-4 times a month [facility] How many standard drinks containing alcohol do you have on a typical day? 3 or 4 [facility] How often do you hav e 6 or more drinks on 1 occasion? Never [facility] How hard is it for y ou to pay for the very basics like food, housing, medical care, and heating Not hard at all [facility] Do you feel stress - tense, restless, nervous, or anxious, or unable to sleep at night because your mind is troubled all the time - these days [OSQ] Rather much [facility] Start: 07-15-2024 Tobacco Comment Off and on smo ker from . She would stop smoking with her pregnancies then restart [facility] Start: 07-15-2024 Alcohol Comment occasional [facility] Start: 1990 Sex assigned at Not on file P [facility] Start: 05-26-2015 Sex Female (finding) [facility] Tobacco smoking stat [facility] Tobacco smoking consumption unknown [facility] Start: 1990 Sex Assigned At Female F [facility] Functional Status Date Assessment Result Facility 03-31-2025 Total score [AUDIT-C] 3 03/31/20 9:27 AM EDT Cam Garcia, DO [facility] Clinical Notes 07-15-2024 to 05-17-2025 Barbara Byers NP - 05/17/2025 3:30 PM Aaron Monroe LPN - 04/29/2025 8:50 AM EDTTelephone Encounter - Brittnee Lopez CMA - 04/02/2025 12:19 PM EDT Note Date & Type Note Facility 05-17-2025 History of Presen t illness Narrative Reason for Appointment: Patient ID: Karis Duval [...] W/ FILCHIE CLIPS Bilateral 2020 [place] REVIEW OF SYSTEMS Review of Systems: Review [...] Vitals: Estimated body mass index is 27.25 kg/m as calculated from the following: Height as [...] by Barbara Byers NP on behalf of: Kris Abreu DO documented in this encounter [facility] 04-29-2025 History of Presen t illness Narrative Reason for Appointment: Patient ID: Karis Duval is a 34 y.o. female who presents for Menstrual Problem (Pt present today to discuss menstrual cycles. (Dr. Garcia referral) Patient wants to discuss an Endometrial Ablation w/bilateral salpingectomy.) Patient presents today for Consult appointment. MEDICATIONS Current Outpatient Medications Medication Instructions [...] W/ FILCHIE CLIPS Bilateral 2020 Done [place] REVIEW OF SYSTEMS Review of Systems: Review of Systems Constitutional: Negative. HENT: Negative. Eyes: Negative. Respiratory: Negative. Cardiovascular: Negative. Gastrointestinal: Negative. Genitourinary: Positive for menstrual problem, pelvic pain and vaginal bleeding. Musculoskeletal: Negative. Skin: Negative. Neurological: Negative. All other systems reviewed and are negative. Hematological: Negative. Endocrine: Negative. Allergic/Immunologic: Negative. OBJECTIVE Objective: Physical Exam Constitutional: Appearance: Normal appearance. She is well-developed. Cardiovascular: Rate and Rhythm: Normal rate and regular rhythm. Pulmonary: Effort: Pulmonary effort is normal. Breath sounds: Normal breath sounds. Abdominal: General: Bowel sounds are normal. There is no distension. Palpations: Abdomen is soft. Tenderness: There is no abdominal tenderness. There is no guarding or rebound. Musculoskeletal: General: No swelling. Normal range of motion. Right lower leg: No edema. Left lower leg: No edema. Neurological: Mental Status: She is alert and oriented to person, place, and time. Skin: General: Skin is warm and dry. Psychiatric: Mood and Affect: Mood normal. Behavior: Behavior normal. Vitals and nursing note reviewed. Exam conducted with a building code inspector present. Vitals: Estimated body mass index is 27.07 kg/m as calculated from the following: Height as of this encounter: 5' 2 . Weight as of this encounter: 148 lb. BP: 118/72 Patient's last menstrual period was 04/12/2025. ASSESSMENT & PLAN ICD-10-CM 1. Irregular periods/menstrual cycles N92.6 Patient presents to office today to discuss irregular cycles and salpingectomy. Patient has heavy, painful periods that last 8-9 days. Pt states she has intense cramping and has missed work due to her pain. Pt has clotting and in [place] had a salpingectomy w/FILCHE CLIPS. Discussed procedure with patient in regards to surgical management with Ablation with Salpingectomy. Patient to have labs and US will be obtained. Patient will schedule Endometrial Biopsy and US prior to leaving office today. Documented by Beth Monroe LPN on behalf of: Kris Abreu DO documented in this encounter [facility] 04-02-2025 Miscellaneous Notes Formattin g of this note might be different from the original. ----- Message from Cam Garcia DO sent at 04/02/2025 11:39 AM EDT ----- Her total cholesterol was high at 203 and your triglycerides were elevated at 163. She still has a low cardiovascular risk. I would recommend a Mediterranean diet and recheck next year. Her CMP was essentially normal. ----- Message ----- From: Raysa, Background User Sent: 03/31/2025 6:26 PM EDT To: Cam Garcia DO Patient notified documented in this encounter [facility] 04-02-2025 Telephone encount er Note ----- Message from Cam Garcia DO sent at 04/02/2025 11:39 AM EDT ----- Her total cholesterol was high at 203 and your triglycerides were elevated at 163. She still has a low cardiovascular risk. I would recommend a Mediterranean diet and recheck next year. Her CMP was essentially normal. ----- Message ----- From: Lab, Background User Sent: 03/31/2025 6:26 PM EDT To: Cam Garcia DO [facility] 04-02-2025 Telephone encount er Note Patient notified [facility] 03-31-2025 History of Presen t illness Narrative Subjective Patient ID: Karis Duval is a 34 y.o. female. Karis presents today for her annual wellness exam. She is taking the fluoxetine 10 mg daily. She was not sure if it was working or not so she stopped it and she got way worse. When she does take it it does seem to help with her emotions and stabilizes her mood but feels that she could use more improvement. She was wondering if she could increase the dose. She has lost some weight with better eating habits. She does not really have time to exercise because she works midnights and then is tired during the day. She does smoke cigarettes. She has no desire to quit smoking right now. The following portions of the patient's history were reviewed and updated as appropriate: allergies, current medications, past family history, past medical history, past social history, past surgical history, problem list, and medication reconciliation was completed including current medication and post discharge medication. Review of Systems Constitutional: Negative. HENT: Negative. Eyes: Negative. Respiratory: Negative. Gastrointestinal: Negative. Endocrine: Negative. Genitourinary: Negative. Musculoskeletal: Negative. Skin: Negative. Allergic/Immunologic: Negative. Neurological: Negative. Hematological: Negative. Psychiatric/Behavioral: Positive for dysphoric mood. The patient is nervous/anxious. Objective Physical Exam Vitals reviewed. Constitutional: General: She is not in acute distress. HENT: Head: Normocephalic. Right Ear: Tympanic membrane and external ear normal. Left Ear: Tympanic membrane and external ear normal. Ears: Comments: Mild cerumen in both ears but TMs are visible Eyes: General: No scleral icterus. Extraocular Movements: Extraocular movements intact. Conjunctiva/sclera: Conjunctivae normal. Neck: Vascular: No carotid bruit. Cardiovascular: Rate and Rhythm: Normal rate and regular rhythm. Pulses: Normal pulses. Heart sounds: Normal heart sounds. No murmur heard. Pulmonary: Effort: Pulmonary effort is normal. No respiratory distress. Breath sounds: Normal breath sounds. No wheezing, rhonchi or rales. Musculoskeletal: Cervical back: Neck supple. Lymphadenopathy: Cervical: No cervical adenopathy. Neurological: Mental Status: She is alert. Assessment/Plan Karis was seen today for annual exam. Diagnoses and all orders for this visit: Well adult health check - Lipid profile; Future - Comprehensive metabolic panel; Future - Comprehensive metabolic panel - Lipid profile Health maintenance discussed. Check CMP and lipids. She would like to establish with a local digital analytics manager for her female exams. We will send a referral to the digital analytics manager at [facility]. She declined Tdap booster Dysmenorrhea - Ambulatory referral to Obstetrics / Gynecology - Consult (Non[facility]); Future Refer to gynecology. Anxiety - FLUoxetine (PROzac) 20 mg capsule; Take 1 capsule (20 mg total) by mouth in the morning. Anxiety is improved with medication. However she could use further improvement so I am going to increase the dose to 20 mg daily. Cigarette smoker She does smoke cigarettes daily. We discussed the risks of smoking. Discussed various smoking cessation strategies. She has no desire to quit smoking right now. At least 3 minute spent discussing. Menorrhagia with regular cycle - Ambulatory referral to Obstetrics / Gynecology - Consult (Non[facility]); Future Refer to certified pathology assistant Mild major depression - FLUoxetine (PROzac) 20 mg capsule; Take 1 capsule (20 mg total) by mouth in the morning. Increase fluoxetine to 20 mg daily Mild intermittent asthma without complication - albuterol-budesonide (AIRSUPRA) 90-80 mcg/actuation HFA aerosol inhaler; Inhale 2 puffs every 4 (four) hours as needed (wheeze, shortness of breath). She has mild intermittent asthma but does have exacerbations especially in the spring. She is using a rescue inhaler with benefit. There is a new medication called air supra which is superior to just plain albuterol. It reduces risk of severe exacerbations. She would like to try it. Overweight (BMI 25.0-29.9) She is overweight. She would benefit from weight loss. Diet exercise and weight loss discussed and encouraged. She says she does not really have much time to exercise but I encouraged her to do even 5-10 minutes of exercise a day which most people could find the time to do. She has lost 8 lb since her last visit so she was congratulated on her weight loss and encouraged to continue. Patient noted to have elevated BMI and the following intervention(s) were applied: encouragement to exercise and prescribed diet education. documented in this encounter [facility] 01-12-2025 Miscellaneous Notes Formattin g of this note might be different from the original. Prescription sent in. She is due for a wellness anytime. She was only seen once for new patient visit back in June documented in this encounter [facility] 01-12-2025 Telephone encount er Note Prescription sent in. She is due for a wellness anytime. She was only seen once for new patient visit back in June [facility] 07-15-2024 History of Presen t illness Narrative Subjective Patient ID: Karis Ponce is a 33 y.o. female. Karis presents today as a new patient. She has several concerns that she would like to discuss. She has trouble falling asleep. She is a worrier. Can get sad if things don't go her way. She gets aggravated and irritable for now reason. She can't shut off her mind. She has trouble losing weight. She had an episode of abdominal pain a few months ago. It was kind around the center of her abdomen. It lasted about 4 days then resolved spontaneously. She had her tubes tied and then had clips put on. She was told by the BULL GANG SUPERVISOR that it might cause pain down the road she also has a history of ovarian cyst. It has not recurred. She did not seek help when it occurred. She is frustrated that she is unable to lose weight. She walks most every day with her children for about 30 minutes. She tries to eat healthy diet. She recently had to go to the emergency department for chest congestion and shortness a breath. She was told she had allergies. She is originally from [place] and moved up here recently. She was also having a cough. It is nonproductive. She has been smoking off and on since she was 13. She would quit when she was but then restart. She smokes about half a pack a day now. The following portions of the patient's history were reviewed and updated as appropriate: allergies, current medications, past family history, past medical history, past social history, past surgical history, problem list, and medication reconciliation was completed including current medication and post discharge medication. Review of Systems Constitutional: Negative. HENT: Negative. Eyes: Negative. Respiratory: Positive for cough and shortness of breath. Cardiovascular: Negative. Endocrine: Negative. Genitourinary: Negative. Musculoskeletal: Negative. Skin: Hair loss and thinning Neurological: Negative. Hematological: Negative. Psychiatric/Behavioral: Positive for decreased concentration, dysphoric mood and sleep disturbance. The patient is nervous/anxious. Objective Physical Exam Constitutional: General: She is not in acute distress. Appearance: Normal appearance. HENT: Head: Normocephalic. Eyes: General: No scleral icterus. Extraocular Movements: Extraocular movements intact. Conjunctiva/sclera: Conjunctivae normal. Neck: Thyroid: No thyroid mass, thyromegaly or thyroid tenderness. Cardiovascular: Rate and Rhythm: Normal rate and regular rhythm. Pulses: Normal pulses. Heart sounds: Normal heart sounds. No murmur heard. Pulmonary: Effort: Pulmonary effort is normal. No respiratory distress. Breath sounds: Normal breath sounds. No wheezing, rhonchi or rales. Abdominal: General: Bowel sounds are normal. Palpations: Abdomen is soft. Tenderness: There is no abdominal tenderness. Musculoskeletal: Cervical back: Neck supple. Lymphadenopathy: Cervical: No cervical adenopathy. Neurological: General: No focal deficit present. Mental Status: She is alert and oriented to person, place, and time. Cranial Nerves: Cranial nerves 2-12 are intact. Gait: Gait is intact. Psychiatric: Attention and Perception: Attention normal. Mood and Affect: Mood and affect normal. Speech: Speech normal. Behavior: Behavior normal. Behavior is cooperative. Thought Content: Thought content normal. Cognition and Memory: Cognition normal. Judgment: Judgment normal. Assessment/Plan Karis was seen today for new patient. Diagnoses and all orders for this visit: Anxiety Discussed various treatment options for anxiety. She would like something that would not gain weight. We will try fluoxetine 10 mg daily. Overweight She is overweight. She would benefit from weight loss. Diet exercise and weight loss discussed. We will have her come back and check for underlying causes of weight loss such as thyroid and diabetes. Cigarette smoker She was encouraged to quit smoking. She denied assistance. She feels that if she got her anxiety under better control she can quit smoking. Moderate major depression (CMS-HCC) Will start fluoxetine 10 mg daily. Reactive airway disease without complication, unspecified asthma severity, unspecified whether persistent - Pulmonary function test Complete PFT w/ BD (Spirometry (Flow Volume Loop) pre/post short acting bronchodilator w/ DLCO (diffusion study) and Lung Volume); Future - albuterol (PROVENTIL,VENTOLIN) nebulizer solution 2.5 mg Check PFTs Other orders - FLUoxetine (PROzac) 10 mg capsule; Take 1 capsule (10 mg total) by mouth in the morning. Will see her back in about 6 weeks to see how she is doing on the fluoxetine. She can call in a couple weeks if there problems or needs to increase the dose. We will also review the PFTs at that time. documented in this encounter [facility] Evaluation note Diagnosis Anxiety- Primary Anxiety state, unspecified Overweight Cigarette smoker Tobacco use disorder Moderate major depression (CMS-HCC) Major depressive disorder, single episode, moderate Reactive airway disease without complication, unspecified asthma severity, unspecified whether persistent [facility] Diagnosis Well adult health check- Primary Unspecified general medical examination Dysmenorrhea Anxiety Anxiety state, unspecified Cigarette smoker Tobacco use disorder Menorrhagia with regular cycle Mild major depression Major depressive disorder, single episode, mild Mild intermittent asthma without complication Overweight (BMI 25.0-29.9) Overweight [facility] Diagnosis Irregular periods/menstrual cycles PCOS (polycystic ovarian syndrome) Polycystic ovaries [facility] Diagnosis Irregular menstrual cycle [facility] noteNo assessment information availablePark[facility] Work Phone: InstructionsNot on filedocumented in this encounter [facility]InstructionsNot on filedocumented in this encounter [facility] SystemInstructionsNot on filedocumented in this encounter [facility] SystemInstructionsNot on filedocumented in this encounter [facility] SystemInstructionsNot on filedocumented in this encounter [facility] SystemReason for referral (narrative)No reason for referral information availablePark[facility] Work Phone: Summary Purpose Family History No Family History Records FoundNo Family History Records Found Advance Directives No Advanced Directives Records FoundNo Advanced Directives Records Found Additional Source Comments INFORMATION SOURCE (unrecogn ized section and content) DATE CREATED AUTHOR 03/29/2023 [facility] DATE CREATED AUTHOR AUTHOR'S ORGANIZ ATION 05/18/2025 [facility] Reason for Visit (unrecogniz ed section and content) Reason Comments Med Refill Reason Comments New Patient Reason Onset Date Comments Med Refill 01/12/2025 Reason Comments Annual Exam Questions, periods q uestion? Reason Comments Menstrual Problem Pt present today to discuss menstrual cycles. (Dr. Garcia referral) Patient wants to discuss an Endometrial Ablation w/bilateral salpingectomy. Reason Comments [facility] Care Teams (unrecognized sec tion and content) Tie Sawyer Relationship Specialty Start Date End Date Cam Garcia DO [address] [facility], [place] [address] PCP - General Family Medicine 07/15/24 Tie Sawyer Relationship Specialty Start Date End Date Cam Garcia DO [address] [place] [address] PCP - General Family Medicine 07/15/24 Tie Sawyer Relationship Specialty Start Date End Date Cam Garcia DO [address] [place] [address] PCP - General Family Medicine 07/15/24 Tie Sawyer Relationship Specialty Start Date End Date Cam Garcia DO [address] [place] [address] PCP - General Family Medicine 07/15/24 Tie Sawyer Relationship Specialty Start Date End Date Cam Garcia DO [address] [place] [address] PCP - General Family Medicine 07/15/24 Tie Sawyer Relationship Specialty Start Date End Date Cam Garcia MD [address] [place] [address] PCP - General Family Medicine 04/29/25 Tie Sawyer Relationship Specialty Start Date End Date Cam Garcia MD [address] [place] [address] PCP - General Family Medicine 04/29/25 Tie Sawyer Relationship Specialty Start Date End Date Cam Garcia MD [address] [place] [address] PCP - General Family Medicine 04/29/25 Team Status: Inactive Member Role Status Dates Kris Abreu DO Attending Provider Active Start : May 17, 2025 End: May 17, 2025 Goals (unrecognized section and content) Goals may be documented in a n alternate section FOR RECORDS PERTAINING TO PATIENTS WHO ARE [...] BE BASED ON THE PRIMARY CLINICAL RECORDS. [facility] [employer] [facility]. provides no warranty or guarantee of the accuracy or completeness of information in this document.
== END 2025-05-17 12:11 | disposition home or self-care (01) ==
LOC: LAB 12:10
PROVIDERS: Visit Provider Obstetrics & Gynecology
DX: N92.6 Irregular menstruation, unspecified (principal)
CPT/HCPCS: 88305

== ENCOUNTER 2025-06-07 06:29 | Outpatient (REF) | payer OTHER, SELFPAY ==
--- OUTSIDE RECORDS SUMMARY | 2025-06-07 14:00 | XMS_ITS | Encounter Summary ---
Author Organization [facility] Address [address] [place] [address] Care Team Providers Care Underground Miner Name Role Phone Cam Garcia MD Primary Care Provider Reason for Visit * Reason Comments Gynecologic Exam Pre-op Visit Encounter Details Date Type Department Care Team (Latest Contact Info) Description 06/07/2025 2:00 PM EDT Procedure Visit [facility] [address] [place] [address] Vaibhav Abreu DO [address] [facility] [address] [place] [address] Pre-op examination; Request for sterilization; Menorrhagia with [...] on 06-25-[address] Abreu at [facility]. MEDICATIONS Current Outpatient Medications Medication Instructions FLUoxetine [...] W/ FILCHIE CLIPS Bilateral 2019 Done in [place] REVIEW OF SYSTEMS Review of Systems: Review [...] nursing note reviewed. Exam conducted with a malt loader present. Vitals: Estimated body mass index is [...] was reviewed,and patient is to proceed to [facility] OR. Follow Up: Patient is to [...] Visit [facility] [address] [place] [address] Vaibhav Abreu DO [address] [place] [address] Scheduled Orders Name Type Priority Associated Diagnoses [...] examination documented in this encounter Care Teams Underground Miner Relationship Specialty Start Date End Date Cam Garcia MD [address] [facility], [facility] [place] [address] PCP - General Family Medicine 04/29/25 documented as of this encounter
--- OUTSIDE RECORDS SUMMARY | 2025-06-08 06:30 | XMS_ITS | Encounter Summary ---
Author Organization [facility] Address [id number] [address] [place] [address] Care Team Providers Care Tuckpointer Cleaner Caulker Name Role Phone Cam Garcia Primary Care Provider [phone] Encounter Details Date Type Department Care Team (Late st Contact Info) Description 10/05/2024 Telephone [facility] - Family Medicine [address] [place] [phone] Brittnee Lopez CMA Social History Tobacco Use Types Packs/Day Years Used Date Smoking Tobacco: Every Day Cigarettes 0.2 6.2 Started: 10/21/2003; Last attempted to quit: 10/21/2008 Smokeless Tobacco: Never Comments:Off and on smoker f rom [id number]. She would stop smoking with her pregnancies then restart Alcohol Use Standard Drinks/Week Comments Yes 0 (1 standard drink = 0.6 oz pur e alcohol) occasional [employer] Utilities Answer Date Recorded In the past 12 months has [employer] electric, gas, oil, or water company threatened [...] often do you attend chur ch or buddhism services? Never 07/15/2024 Do you belong to any clubs o r organizations such as voodoo groups, unions, fraternal or athletic groups, or [...] Answer Date Recorded Total Score 11 07/15/2024 [facility] - Occupational Stress [...] Recorded Do you need help finding a [facility] career center and/or a training [...] documented in this encounter Plan of Treatment Not on file documented as of this encounter Visit Diagnoses Not on filedocumented in this encounter Additional Health Concerns Assessment Noted Time PHQ-9 Depression Total Score: 11 024 10:12 AM EDT documented as of this encounter Care Teams Tuckpointer Cleaner Caulker Relationship Specialty Start Date End Date Cam Garcia DO [address] [facility] [place] [address] PCP - General Family Medicine 07/15/24 documented as of this encounter
--- OUTSIDE RECORDS SUMMARY | 2025-06-08 06:30 | XMS_ITS | Encounter Summary ---
Author Organization [facility] Address [id number] [address] [place] [address] Care Team Providers Care Advocacy Director Name Role Phone Cam Garcia Primary Care Provider [phone] Encounter Details Date Type Department Care Team (Late st Contact Info) Description 01/13/2025 Telephone [facility] - Family Medicine [address] [place] [phone] Brittnee Lopez CMA Social History Tobacco Use Types Packs/Day Years Used Date Smoking Tobacco: Every Day Cigarettes 0.2 6.2 Started: 10/21/2003; Last attempted to quit: 10/21/2008 Smokeless Tobacco: Never Comments:Off and on smoker f rom [id number]. She would stop smoking with her pregnancies then restart Alcohol Use Standard Drinks/Week Comments Yes 0 (1 standard drink = 0.6 oz pur e alcohol) occasional [employer] Utilities Answer Date Recorded In the past 12 months has [employer] electric, gas, oil, or water company threatened [...] often do you attend chur ch or samaritan services? Never 07/15/2024 Do you belong to any clubs o r organizations such as islam groups, unions, fraternal or athletic groups, or [...] Answer Date Recorded Total Score 11 07/15/2024 [facility] - [...] Recorded Do you need help finding a [facility] and/or a training [...] documented as of this encounter Care Teams Advocacy Director Relationship Specialty Start Date End Date Cam Garcia DO [address] [place] [address] PCP - General Family Medicine 07/15/24 documented as of this encounter
--- OUTSIDE RECORDS SUMMARY | 2025-06-08 06:30 | XMS_ITS | Encounter Summary ---
Author Organization [facility] Address [address] [place] [address] Care Team Providers Care Industrial Court Magistrate Name Role Phone Cam Garcia MD Primary Care Provider Encounter Details Date Type Department Care Team (Late Contact Info) Description 05/17/2025 Abstract [facility] [address] [place] [address] [place] [phone] Vaibhav Abreu DO [address] [place] [id number] Social History Tobacco Use Types Packs/Day Years Used Date Smoking Tobacco: Never Assessed Comments No Sex and Gender Information Value Date Recorded Sex Assigned at Not on file Legal Sex Female 11:17 AM EDT Gender Identity Not on file Sexual Orientation Not on file documented as of this encounter Plan of Treatment Upcoming Encounters Date Type Department Care Team (Late Contact Info) Description 07/08/2025 8:40 AM EDT Office Visit [facility] [address] [place] [address] [place] [phone] Vaibhav Abreu DO [address] [place], [facility] documented as of this encounter Visit Diagnoses Not on filedocumented in this encounter Care Teams Industrial Court Magistrate Relationship Specialty Start Date End Date Cam Garcia MD [address] [facility] [place] [address] PCP - General Family Medicine 04/29/25 documented as of this encounter
--- OUTSIDE RECORDS SUMMARY | 2025-06-08 06:30 | XMS_ITS | Clinical Summary ---
Author Organization [facility] Address [address] [place] [address] Care Team Providers Care Manager Gas Name Role Phone Cam Garcia MD Primary Care Provider [phone] Allergies Active Allergy Reactions Criticality Noted Date Comments Acetaminophen Hives 07/15/2024 Codeine Unknown 06/07/2025 Medications FLUoxetine (PROzac) 20 MG capsule Take 20 mg by mouth in the morning. 03/31/2025 Active Encounters Date Type Department Care Team Description 06/07/2025 2:00 PM EDT [place] [address] Vaibhav Abreu DO Pre-op examination; Request for sterilization; Menorrhagia with regular cycle; Abnormal uterine bleeding (AUB); Pelvic pain; Well woman exam with routine gynecological exam 05/17/2025 3:30 PM EDT [place] [address] Vaibhav Abreu DO Irregular menstrual cycle 05/17/2025 [place] [address] Vaibhav Abreu DO 04/29/2025 8:50 AM EDT [place] [address] Vaibhav Abreu DO Irregular periods/menstrual cycles; PCOS (polycystic ovarian syndrome) 04/29/2025 Bamboo [place] [address] Vaibhav Abreu DO 04/28/2025 Travel from Last [...] oz) 06/07/2025 2:02 P M EDT Height 157.5 cm (5' 2 ) 04/29/2025 8:33 AM EDT Body Mass Index 27.27 04/29/2025 8:33 AM EDT Plan of Treatment Upcoming Encounters Date Type Department Care Team (Late st Contact Info) Description 07/08/2025 8:40 AM EDT Office Visit [facility] [address] [place] [address] Vaibhav Abreu DO [address] [place] [address] [place] [address] Procedures Procedure Name Priority Date/Time Associated Diagnosis Comments POCT , URINE Routine 05/17/2025 4:13 PM EDT Irregular menstrual cycle from Last 3 Months Results * POCT , urine manually resulted (05/17/2025 4:13 PM EDT) Preg Test, Ur Negative Negative Urine 05/17/2025 4:13 PM EDT Result [facility] Vaibhav Abreu DO POINT OF CARE TEST ENTER/EDIT OR DERABLES Final Result from Last 3 Months Insurance [facility] MEDICAID Care Teams Manager Gas Relationship Specialty Start Date End Date Cam Garcia MD [address] [facility], [place] [address] PCP - General Family Medicine 04/29/25
--- OUTSIDE RECORDS SUMMARY | 2025-06-08 06:31 | XMS_ITS | CCD ---
Author Organization [facility] Inform ion Partnership [facility] Care Team Providers Care Manager Flight Name Role Phone JAKUB BURGER Consulting Unavailabl e REQUEST, DR CHRISTIANSEN LISTED Primary Care Unavaila lucas MARTELL ., DR LAGUNAS Attending Unavailable JAYSHREE Ryan, DR LAGUNAS Admitting Unavailable Cam Garcia DO Primary Care Provider Cam Garcia DO Primary Care Provider Cam Garcia MD Primary Care Provider KRIS ABREU Attending Unavailable KRIS ABREU Attending Unavailable Kris Abreu DO Attending Provider [phone] Kris Abreu Attending Unavailable Kris Abreu Admitting Unavailable Allergies Allergy Classification Reported Allergen(s) Allergy Type Date of Onset Reaction(s) Facility (1 source) Codeine Drug Allergy 9 [facility] Repository (5 sources) Tylenol-Codeine #2 Propensity to adverse reactions to drug 4 [facility] (4 sources) Acetaminophen Drug Allergy 4 [facility] (1 source) Codeine Drug Allergy 5 Unknown [facility] Medications Current Medications Medication Drug Class(es) [...] 03/31/2025 Active FLUoxetine 20 mg oral capsule (12 sources) Serotonin Reuptake Inhibitor Start: 03-31-2025 take [...] Drug Class(es) Dates Sig (Normalized) Sig (Original) [id number] 200 actuat albuterol 0.09 mg/actuat metered dose [...] Active Problems Problem Classification Problem Date Documented Date Episodic/Chronic Abdominal pain (1 source) Pain in pelvis; Translations: [Pelvic and perineal pain] 06-07-2025 Episodic Anxiety disorders (4 sources) Anxiety; Translations: [Anxiety disorder, unspecified] Onset: 03-31-2025 07-15-2024 Chronic Asthma (3 sources) Reactive airway disease; Translations: [Unspecified asthma, uncomplicated] 07-15-2024 Chronic Contraceptive and procreative management (1 source) Sterilization requested; Translations: [Encounter for sterilization] 06-07-2025 Episodic Inflammation; infection of eye (except that caused by tuberculosis or sexually transmitteddisease) (1 source) Unspecified conjunctivitis; Translations: [UNSPECIFIED CONJUNCTIVITIS] Onset: 03-19-2023 Episodic Menstrual disorders (12 sources) Dysmenorrhea; Translations: [Menorrhagia] Onset: 03-31-2025 03-31-2025 [...] EYE AND ADNEXA] Onset: 03-18-2023 Episodic Other female genital disorders (1 source) Abnormal uterine bleeding; Translations: [Abnormal uterine and vaginal bleeding, unspecified] 06-07-2025 Chronic Other nutritional; endocrine; and metabolic disorders (1 [...] Interpretation and review of laboratory results Normal [facility] Preg Test, Ur Negative Negative [facility] 05-17-2025 L Specimen: [id number] Received: 05/18/25 Status: KRYSTA Lundmau Num: [id number] Spec Type: Surgical Subm Dr: Kris Abreu Tissues: A Endometrium - Biopsy (ENDOMETRIUM BX) Procedures: HE/2, Gross/Micro L4 Age/ Patient Sex Location Account Attending Physician Karis Duval 34/F LABELL [id number] Kris Abreu SPEC NUM: [id number] RECD: 05/18/25 STATUS: KRYSTA BONNY NUM: [id number] MARÍA: 05/17/25 [facility] DR: Kris Abreu ENTERED: 05/18/[address]: Duyen,Raysa SPEC TYPE: Surgical DEPT: [place] RE[facility] ENTERED BY: [id number] RECV BY: [id number] ORDERED: HE/2, Gross/Micro L4 ORDERED: HE/2, Gross/Micro L4 Pathological Diagnosis Endometrium, biopsy: - Proliferative phase endometrium. - No evidence of hyperplasia or malignancy identified. Clinical Information Irregular periods N92.6 Gross Description Received in formalin labeled with the patients name, date of , and EM BX is a pale chávez mucoid material admixed with rodriguez-pink to red-brown, delicate tissue fragments, 1.5 x 1 x 0.2 cm in aggregate. The specimen is filtered and entirely submitted in a single cassette. (1, ns, [id number]) Microscopic Description Microscopic examination is performed. Specimen: [id number] Received: 05/18/25 Status: KRYSTA Bonny Num: [id number] Spec Type: Surgical Subm Dr: Kris Abreu Tissues: A Endometrium - Biopsy (ENDOMETRIUM BX) Procedures: HE/2, Gross/Micro L4 Patient: Karis Duval [id number] (Continued) Specimen: [id number] Received: 05/18/25 (Continued) Signed (signatur e on file) Jovan Hoover MD 05/19/25 1115 Specimen: [id number] Received: 05/18/25 Status: KRYSTA Draper Num: [id number] Spec Type: Surgical Subm Dr: Kris Abreu Tissues: A Endometrium - Biopsy (ENDOMETRIUM BX) Procedures: HE/Nancy, Gross/Dara L4 Patient: Karis Duval [id number] (Continued) Specimen: [id number] Received: 05/18/25 (Continued) CPT Codes 61099 Specimen: [id number] Received: 05/18/25-135 Status: KRYSTA Draper Num: [id number] Spec Type: Surgical Subm Dr: Kris Abreu Tissues: A Endometrium - Biopsy (ENDOMETRIUM BX) Procedures: HE/2, Gross/Micro L4 Patient: Karis Duval [id number] (Continued) Signed (signatur e on file) Jovan Hoover MD 05/19/25 1115 Normal [facility] Comprehensive metabolic pane juan 03-31-2025 Albumin [Mass/Vol] 4.7 g/dL 3.2 - 5.3 g/dL [facility] ALP [Catalytic activity/Vol] 63 U/L 39 - 130 U/L [facility] ALT No additional P-5'-P [Catalytic activity/Vol] 12 U/L NINF - 31 U/L [facility] Anion gap [Moles/Vol] 11 mmol/L 5 - 15 mmol/L [facility] AST [Catalytic activity/Vol] 16 U/L NINF - 41 U/L [facility] Bilirubin [Mass/Vol] 0.2 mg/dL Low 0.3 - 1.2 mg/dL [facility] Calcium [Mass/Vol] 9.9 mg/dL 8.5 - 10. 5 mg/dL [facility] Chloride [Moles/Vol] 105 mmol/L 98 - 109 mmol/L [facility] CO2 [Moles/Vol] 23 mmol/L 22 - 32 mmol/L [facility] Creatinine [Mass/Vol] 0.66 mg/dL 0.40 - 1.00 mg/dL [facility] Comment on above: METHOD TRACEABLE TO IDOH STANDARD EGFR Non-Race Dependent - PINF [facility] Comment on above: Reported eGFR is bas ed on the CKD-EPI 2020 equation that does not use a race coefficient. Glucose [Mass/Vol] 91 mg/dL 65 - 99 mg/dL [facility] Potassium [Moles/Vol] 4.2 mmol/L 3.5 - 5.0 mmol/L [facility] Protein [Mass/Vol] 7.5 g/dL 6.0 - 8.0 g/dL [facility] Sodium [Moles/Vol] 139 mmol/L 134 - 146 mmol/L [facility] Urea nitrogen [Mass/Vol] 16 mg/dL 5 - 23 mg/dL [facility] Lipid profileon 03-31-2025 Cholesterol [Mass/Vol] 204 mg/dL High 150 - 200 mg/dL [facility] Cholesterol in HDL [Mass/Vol] 63 mg/dL 39 - PINF mg/dL [facility] Comment on above: HDL <40 mg/dL - High Risk HDL > or = 40mg/dL- Desirable HDL >60 mg/dL - Negative Risk Cholesterol in HDL [Mass/Vol] 3.2 mg/dL 1.0 - 5.0 [facility] Cholesterol in LDL [Mass/Vol] 108 mg/dL NINF - 130 mg/dL [facility] Comment on above: LDL <100 mg/dL - Dani irable LDL >160 mg/dL - High Risk Cholesterol in VLDL [Mass/Vol] 33 mg/dL High 0 - 30 mg/dL [facility] Triglyceride [Mass/Vol] 163 mg/dL High 27 - 150 mg/dL [facility] No Panel Informationon 03-31 Interpretation and review of laboratory results Abnormal [facility] Vital Signs Date Time Vital Sign Value Performing Clinician Facility 06-07-2025 14:02-0400 Body mass index (BMI) [Ratio] 27.27 kg/m2 Kris Lois DO Work Phone: [facility] 06-07-2025 14:02-0400 Body weight 67.64 kg Kris Lois DO Work Phone: [facility] 06-07-2025 14:02-0400 Diastolic blood pressure 74 mm[Hg] Kris Lois DO Work Phone: [facility] 06-07-2025 14:02-0400 Systolic blood pressure 116 mm[Hg] Kris Lois DO Work Phone: [facility] 05-17-2025 16:04-0400 Body mass index (BMI) [Ratio] 27.25 kg/m2 Kris Lois DO Work Phone: [facility] 05-17-2025 16:04-0400 Body weight 67.59 kg Kris Lois DO Work Phone: [facility] 05-17-2025 16:04-0400 Diastolic blood pressure 80 mm[Hg] Kris Lois DO Work Phone: [facility] 05-17-2025 16:04-0400 Systolic blood pressure 120 mm[Hg] Kris Lois DO Work Phone: [facility] 04-29-2025 08:33-0400 Body height 157.5 cm Kris Lois DO Work Phone: [facility] 04-29-2025 08:33-0400 Body mass index (BMI) [Ratio] 27.07 kg/m2 Kris Lois DO Work Phone: [facility] 04-29-2025 08:33-0400 Body weight 67.13 kg Kris Lois DO Work Phone: [facility] 04-29-2025 08:33-0400 Diastolic blood pressure 72 mm[Hg] Kris Lois DO Work Phone: [facility] 04-29-2025 08:33-0400 Systolic blood pressure 118 mm[Hg] Kris Lois DO Work Phone: [facility] 03-31-2025 08:53-0400 Body height 157.5 cm Cam Furlong DO Work Phone: [facility] 03-31-2025 08:53-0400 Body mass index (BMI) [Ratio] 27.21 kg/m2 Cam Furlong DO Work Phone: [facility] 03-31-2025 08:53-0400 Body temperature 98.2 [degF] Cam Furlong DO Work Phone: [facility] 03-31-2025 08:53-0400 Body weight 67.5 kg Cam Furlong DO Work Phone: [facility] 03-31-2025 08:53-0400 Diastolic blood pressure 60 mm[Hg] Cam Furlong DO Work Phone: [facility] 03-31-2025 08:53-0400 Heart rate 88 /min Cam Furlong DO Work Phone: [facility] 03-31-2025 08:53-0400 Respiratory rate 20 /min Cam Furlong DO Work Phone: [facility] 03-31-2025 08:53-0400 SaO2% (BldA) [Mass fraction] 98 % Cam Furlong DO Work Phone: [facility] 03-31-2025 08:53-0400 Systolic blood pressure 108 mm[Hg] Cam Furlong DO Work Phone: [facility] 07-15-2024 10:20-0400 Body height 157.5 cm Cam Furlong [employer] Work Phone: [employer] 07-15-2024 10:20-0400 Body mass index (BMI) [Ratio] 28.53 kg/m2 Cam Garcia [employer] [facility] 07-15-2024 10:20-0400 Body temperature 98.49 [degF] Cam Garcia [employer] [facility] 07-15-2024 10:20-0400 Body weight 70.76 kg Cam Garcia [employer] [facility] 07-15-2024 10:20-0400 Diastolic blood pressure 70 mm[Hg] Cam Garcia [employer] [facility] 07-15-2024 10:20-0400 Heart rate 85 /min Cam EasonMissingLINK Work Phone[facility] 07-15-2024 10:20-0400 SaO2% (BldA) [Mass fraction] 95 % Cam EsaonMissingLINK Work Phone: [facility] 07-15-2024 10:20-0400 Systolic blood pressure 112 mm[Hg] Cam Garcia [employer] [facility] Encounters Encounter Date Encounter Type Care Provider Facility Start: 06-07-2025 End: 06-07-2025 Patient encounter procedure Kris Abreu [employer] Work Phone: [facility] [employer] Work Phone: Start: 06-07-2025 End: 06-07-2025 Periodic preventive med est patient 18-39 yrs Kris Abreu [employer] Work Phone: [facility] Comment on above: Pre-op examination; Request for sterilization; Menorrhagia with regular cycle; Abnormal uterine bleeding (AUB); Pelvic pain; Well woman exam with routine gynecological exam Start: 06-07-2025 End: 06-07-2025 Preprocedural examination done Kris Lois DO Work Phone: [facility] Start: 05-17-2025 End: 05-17-2025 Departed Referred Kris Lois -LAB Path [facility] Start: 05-17-2025 End: 05-17-2025 ambulatory KRIS [...] End: 04-12-2025 Telephone encounter Brittnee Lopez CMA [facility] Internal Medicine - Family Medicine Start: 03-31-2025 End: 03-31-2025 Patient encounter status Cam Darrius Navarrogretchen DO Work Phone: [facility] Start: 03-31-2025 End: 03-31-2025 Periodic preventive med est patient 18-39 yrs Cam Garcia DO Work Phone: [facility] Internal Medicine - Family Medicine Comment on above: Well adult health ch david (Primary Dx); Dysmenorrhea; Anxiety; Cigarette smoker; Menorrhagia with regular cycle; Mild major depression; Mild intermittent asthma without complication; Overweight (BMI 25.0-29.9) Start: 01-12-2025 End: 03-25-2025 Refill Holly Adam DUMPMAN [facility] Internal [facility] - [facility] Start: 09-01-2024 End: 09-01-2024 Refill Cam Garcia DO Work Phone: [facility] Internal [facility] - [facility] Start: 07-15-2024 End: 07-15-2024 Office outpatient new 45 minutes Cam Garcia DO Work Phone: [facility] - [facility] Comment [...] Author Start: 09-30-2026 Tobacco Counseling Tobacco Counselin g [facility] Start: 03-31-2026 Adult BMI Follow Up Plan Adult BMI F ollow Up Plan [facility] Start: 03-31-2026 Adult BMI Screening Adult BMI Screen ing [facility] Start: 03-31-2026 Depression Screening Depression Scre [facility] Start: 03-31-2026 Tobacco Screening Tobacco Screening [facility] Start: 07-15-2025 Adult BMI Screening Adult BMI Screen ing [facility] Start: 07-15-2025 [facility] Start: 09-25-2025 Tobacco Screening Tobacco Screening [facility] Start: 07-08-2025 End: 07-08-2025 Patient encounter procedure 07/08/2025 8:40 AM EDT Office Visit [facility] [address] [address] [place] [id number] Kris Abreu, DO [address] [place] [address] [facility] Start: 06-21-2025 Influenza vaccination Influenza Vacc ine [facility] Start: 06-03-2025 End: 06-03-2025 Patient encounter procedure 06/03/2025 9:00 AM EDT [facility] [address] [place] [address] Cam Garcia, [address] [place] [address] [facility] Start: 06-02-2025 End: 06-02-2025 Patient encounter procedure [facility] Start: 05-17-2025 End: 05-17-2025 Patient encounter procedure 05/17/2025 3:30 PM EDT Procedure Visit [facility] [address] [facility] [place] [address] Kris Abreu, DO [address] [place] [address] [facility] Start: 04-29-2025 End: 04-29-2026 DHEA DHEA Lab Routine Irregular periods/menstrual cycles Expected: 04/29/2025 (Approximate), Expires: 04/29/2026 [facility] Comment on above: Expected: 04/29/2025 (Approximate), Expires: 04/29/2026 Start: 04-29-2025 End: 04-29-2026 US Pelvis US Pelvis w/ TV Imaging Routine Irregular periods/menstrual cycles Expected: 04/29/2025, Expires: 04/29/2026 [facility] Comment on above: Expected: 04/29/2025 , Expires: 04/29/2026 Start: 04-29-2025 End: 04-29-2025 Patient encounter procedure 04/29/2025 8:50 AM EDT Office Visit [facility] [address] [facility] [place] [address] Kris Abreu DO [address] [facility] [place] [address] Arrived [facility] Comment on above: Arrived Start: 01-18-2025 End: 01-18-2025 Patient encounter procedure 01/18/2025 4:15 PM EDT Office Visit [facility] Internal Medicine - Family Medicine [address] [place] [address] Cam Garcia, DO [address] [place] [address] [facility] - [facility] Start: 06-21-2024 Influenza vaccination Influenza Vacc ine [facility] Start: 2012 Screening for malign ant neoplasm of cervix Pap Smear [facility] Start: 2010 DTaP,Tdap and Td Vaccines (1 - Tdap) DTaP,Tdap and Td Vaccines (1 - Tdap) [facility] Start: 2009 Adult BMI Follow Up Plan Adult BMI F ollow Up Plan [facility] Start: 1991 Tobacco Counseling Tobacco Counselin g [facility] CBC W Auto Different ial panel - Blood CBC and differential Lab Routine Irregular periods/menstrual cycles Ordered: 04/29/2025 [facility] Comment on above: Ordered: 04/29/2025 Cytology Cervical or vaginal smear or scraping study Pap Smear Pathology and Cytology Routine Well woman exam with routine gynecological exam Ordered: 06/07/2025 [facility] Work Phone: Comment on above: Ordered: 06/07/2025 DHEA-sulfate DHEA-sulfate Lab Routine Irregular periods/menstrual cycles Ordered: 04/29/2025 [facility] Comment on above: Ordered: 04/29/2025 Follicle stimulating hormone Follicle stimulating hormone Lab Routine Irregular periods/menstrual cycles Ordered: 04/29/2025 [facility] Comment on above: Ordered: 04/29/2025 hCG, quantitative, hCG, quantitative, Lab Routine Irregular periods/menstrual cycles Ordered: 04/29/2025 [facility] Work Phone: Comment on above: Ordered: 04/29/2025 Hemoglobin A1c/Hemoglobin.total in Blood Hemoglobin A1c Lab Routine Irregular periods/menstrual cycles Ordered: 04/29/2025 [facility] Comment on above: Ordered: 04/29/2025 Human papilloma viru s DNA [Presence] in Unspecified specimen by Probe with amplification HPV DNA probe, amplified Microbiology Routine Well woman exam with routine gynecological exam Ordered: 06/07/2025 [facility] Comment on above: Ordered: 06/07/2025 Luteinizing hormone Luteinizing hormone Lab Routine Irregular periods/menstrual cycles Ordered: 04/29/2025 [facility] Comment on above: Ordered: 04/29/2025 End: 07-15-2025 [...] Lab Routine Irregular periods/menstrual cycles Ordered: 04/29/2025 [facility] Comment on above: Ordered: 04/29/2025 Thyroxine (T4) free [Mass/volume] in Serum or Plasma T4, free Lab Routine Irregular periods/menstrual cycles Ordered: 04/29/2025 [facility] Comment on above: Ordered: 04/29/2025 Tissue exam Tissue exam Path ology and Cytology Routine Irregular menstrual cycle Ordered: 05/17/2025 [facility] Work Phone: Comment on above: Ordered: 05/17/2025 Payers Date Payer Category Payer Self-pay 2025 [facility] Health [facility] [id number] 2025 Medicaid [id number] 2024 Medicaid [facility] [id number] 2024 Medicaid [id number] 1991 Unknown [id number] 1991 Unknown [id number] 1991 Unknown [id number] 1959 Medicaid [id number] Unknown [id number] Social History Date Type Detail Facility Start: 10-21-2003 Tobacco smoking stat [facility] Smokes tobacco daily [facility] Start: 10-21-2003 End: 10-21-2008 History of tobacco use Cigarette Smoker [facility] Start: 07-15-2024 End: 03-31-2025 Cigarettes smoked current (pack per day) - Reported 0.1 [facility] Start: 07-15-2024 Tobacco use and exposure Smokeless tobacco non-user [facility] Start: 07-15-2024 End: 03-31-2025 Alcoholic beverage intake Current drinker of alcohol (finding) [facility] Start: 07-15-2024 End: 03-31-2025 [employer] [facility] Has the [employer], or [employer] threatened to shut off services in your home in past 12Mo No [facility] Are you now , , , , never or living with a partner? [facility] How often to you hav e a drink containing alcohol? 2-4 times a month [facility] How many standard drinks containing alcohol do you have on a typical day? 3 or 4 [facility] How often do you hav e 6 or more drinks on 1 occasion? Never [facility] How hard is it for y ou to pay for the very basics like food, housing, medical care, and heating Not hard at all [facility] Do you feel stress - tense, restless, nervous, or anxious, or unable to sleep at night because your mind is troubled all the time - these days [OSQ] Rather much [facility] Start: 07-15-2024 Tobacco Comment Off and on smo ker from . She would stop smoking with her pregnancies then restart [facility] Start: 07-15-2024 Alcohol Comment occasional [facility] Start: 1991 Sex assigned at Not on file P [facility] Start: 05-26-2015 Sex Female (finding) [facility] Tobacco smoking stat [facility] Tobacco smoking consumption unknown [facility] Start: 1991 Sex Assigned At Female F [facility] Functional Status Date Assessment Result Facility 03-31-2025 Total score [AUDIT-C] 3 03/31/20 9:27 AM EDT Cam Garcia, DO [facility] Clinical Notes 07-15-2024 to 06-07-2025 Laurence Joyce - 06/07/2025 2:00 PM EDTBarbara Byers, RETINA SUBSPECIALIST - 05/17/2025 3:30 PM EDTSluis m Monroe, NURSERY HAND - 04/29/2025 8:50 AM EDTTelephone Encounter - Brittnee Lopez, BLAINE - 04/02/2025 12:19 PM EDT Note Date & Type Note Facility 06-07-2025 History of Presen t illness Narrative Reason for Appointment: Patient ID: Karis Duval is a 34 y.o. female who presents for Gynecologic Exam and Pre-op Visit Patient presents today for Annual Exam. and Pre Op/Annual appointment. Patient is scheduled to undergo Da Isreal assisted Bilateral Laparoscopic Salpingectomy and Endometrial Ablation with Whitley on 06-25-[address] Abreu at [facility]. MEDICATIONS Current Outpatient Medications Medication Instructions [...] W/ FILCHIE CLIPS Bilateral 2019 Done in [place] REVIEW OF SYSTEMS Review of Systems: Review [...] nursing note reviewed. Exam conducted with a medical affairs specialist present. Vitals: Estimated body mass index is 27.27 kg/m as calculated from the following: Height [...] 06-25-25. Surgical consents were signed, mmc was reviewed, and patient is to proceed to [facility] OR. Follow Up: Patient is to follow up between 1-2 weeks post operative to assess proper healing and recovery from procedure. *-*Patient is to not lift heavy for at least 10 days after surgery*-* return to work 07/05/25 after procedure Documented by Beth Monroe LPN on behalf of: Kris Abreu DO documented in this encounter [facility] 05-17-2025 History of Presen t illness Narrative [...] W/ FILCHIE CLIPS Bilateral 2020 Done in [place] REVIEW OF SYSTEMS Review of Systems: Review [...] Kris Abreu DO documented in this encounter [facility] 04-29-2025 History of Presen t illness Narrative [...] W/ FILCHIE CLIPS Bilateral 2020 Done in [place] REVIEW OF SYSTEMS Review of Systems: Review [...] nursing note reviewed. Exam conducted with a medical affairs specialist present. Vitals: Estimated body mass index is [...] her pain. Pt has clotting and in [place] had a salpingectomy w/FILCHE CLIPS. Discussed procedure with patient in regards to surgical management with Ablation with Salpingectomy. Patient to have labs and US will be obtained. Patient will schedule Endometrial Biopsy and US prior to leaving office today. Documented by Beth Monroe LPN on behalf of: Kris Abreu DO documented in this encounter [facility] 04-02-2025 Miscellaneous Notes Formattin g of this [...] DO Patient notified documented in this encounter [facility] 04-02-2025 Telephone encount er Note ----- Message [...] 6:26 PM EDT To: Cam Garcia DO [facility] 04-02-2025 Telephone encount er Note Patient notified [facility] 03-31-2025 History of Presen t illness Narrative [...] would like to establish with a local byproducts extractor for her female exams. We will send a referral to the byproducts extractor at [facility]. She declined Tdap booster Dysmenorrhea - [...] Gynecology - Consult (Non-[facility]); Future Refer to special events assistant Mild major depression - FLUoxetine (PROzac) [...] prescribed diet education. [facility] 01-12-2025 Miscellaneous Notes Formattin g of this note might be different from the original. Prescription sent in. She is due for a wellness anytime. She was only seen once for new patient visit back in June [facility] 01-12-2025 Telephone encount er Note Prescription sent in. She is due for a wellness anytime. She was only seen once for new patient visit back in June [facility] 07-15-2024 History of Presen t illness Narrative [...] put on. She was told by the HOOP MAKER MACHINE that it might cause pain down the [...] she had allergies. She is originally from [place] and moved up here recently. She was [...] at that time. documented in this encounter [facility] Evaluation note Diagnosis Anxiety- Primary Anxiety state, unspecified Overweight Cigarette smoker Tobacco use disorder Moderate major depression (CMS-HCC) Major depressive disorder, single episode, moderate Reactive airway disease without complication, unspecified asthma severity, unspecified whether persistent documented in this encounter [facility]* Diagnosis Well adult health check- Primary Unspecified general medical examination Dysmenorrhea Anxiety Anxiety state, unspecified Cigarette smoker Tobacco use disorder Menorrhagia with regular cycle Mild major depression Major depressive disorder, single episode, mild Mild intermittent asthma without complication Overweight (BMI 25.0-29.9) Overweight documented in this [facility]* Diagnosis Irregular periods/menstrual cycles PCOS (polycystic ovarian syndrome) Polycystic ovaries documented in this encounter [facility] HealthcareEvaluation note* Diagnosis Irregular menstrual cycle documented in this encounter [facility] HealthcareEvaluation noteNo assessment information availableMercy Health [facility] Work Phone: Evaluation note* Diagnosis Pre-op examination Request for sterilization Menorrhagia with regular cycle Abnormal uterine bleeding (AUB) Pelvic pain Well woman exam with routine gynecological exam Routine gynecological examination documented in this encounter [facility] HealthcareInstructionsNot on filedocumented in this encounterProCar[facility] SystemInstructionsNot on filedocumented in this encounterProCarraway [facility] SystemInstructionsNot on filedocumented in this encounterProCarraway [facility] SystemInstructionsNot on filedocumented in this encounterPremier Health [facility] System InstructionsNot on filedocumented in this encounterOhio[facility] SystemReason for referral (narrative)No reason for referral information availableMercy Health [facility] Work Phone: Summary Purpose Family History No Family History Records FoundNo Family History Records FoundNo Family History Records Found Advance Directives No Advanced Directives Records FoundNo Advanced Directives Records FoundNo Advanced Directives Records Found Additional Source Comments INFORMATION SOURCE (unrecogn ized section and content) DATE CREATED AUTHOR 03/29/2023 [facility] DATE CREATED AUTHOR AUTHOR'S ORGANIZ ATION 05/18/2025 [facility] EPIC DATE CREATED AUTHOR AUTHOR'S ORGANIZ ATION 05/20/2025 [facility] Reason for Visit (unrecogniz ed section and content) Reason Comments Med Refill Reason Comments New Patient Reason Onset Date Comments Med Refill 01/12/2025 Reason Comments Annual Exam Questions, periods q uestion? Reason Comments Menstrual Problem Pt present today to discuss menstrual cycles. (Dr. Garcia referral) Patient wants to discuss an Endometrial Ablation w/bilateral salpingectomy. Reason Comments EMBX Reason Comments Gynecologic Exam Pre-op Visit Care Teams (unrecognized sec tion and content) Manager Flight Relationship Specialty Start Date End Date Cam Garcia DO [address] [place] [address] PCP - General Family Medicine 07/15/24 Manager Flight Relationship Specialty Start Date End Date Cam Garcia DO [address] [place] [address] PCP - General Family Medicine 07/15/24 Manager Flight Relationship Specialty Start Date End Date Cam Garcia DO [address] [place] [address] PCP - General Family Medicine 07/15/24 Manager Flight Relationship Specialty Start Date End Date Cam Garcia DO [address] [place] [address] PCP - General Family Medicine 07/15/24 Manager Flight Relationship Specialty Start Date End Date Cam Garcia DO [address] [place] [address] PCP - General Family Medicine 07/15/24 Manager Flight Relationship Specialty Start Date End Date Cam Garcia MD [address], [place] [address] PCP - General Family Medicine 04/29/25 Manager Flight Relationship Specialty Start Date End Date Cam Garcia MD [address], [place] [address] PCP - General Family Medicine 04/29/25 Manager Flight Relationship Specialty Start Date End Date Cam Garcia MD [address], [place] [address] PCP - General Family Medicine 04/29/25 Team Status: Inactive Member Role Status Dates Kris Abreu DO Attending Provider Active Start : May 17, 2025 End: May 17, 2025 Manager Flight Relationship Specialty Start Date End Date Cam Garcia MD [address], [place] [address] PCP - General Family Medicine 04/29/25 Goals (unrecognized section and content) Goals may [...] BE BASED ON THE PRIMARY CLINICAL RECORDS. [employer] [facility]. provides no warranty or guarantee of the accuracy or completeness of information in this document.
[2025-06-10 16:09] LABS: Age Gdln ACOG Testing Note (.); IGP, Aptima HPV, rfx 16/18,45 Note (.)
== END 2025-06-07 06:30 | disposition home or self-care (01) ==
LOC: LAB 06:29
PROVIDERS: Visit Provider Obstetrics & Gynecology
DX: Z01.419 Encounter for gynecological examination (general) (routine) without abnormal findings (principal)
CPT/HCPCS: 87624; 88175

== ENCOUNTER 2025-06-10 09:50 | Outpatient (OUT) | payer OTHER, SELFPAY ==
--- OUTSIDE RECORDS SUMMARY | 2025-06-07 14:00 | XMS_ITS | Encounter Summary ---
Author Organization [facility] Address [address] [place] [address] Care Team Providers Care Palliative Care Nurse Name Role Phone Cam Garcia MD Primary Care Provider Reason for Visit * Reason Comments Gynecologic Exam Pre-op Visit Encounter Details Date Type Department Care Team (Latest Contact Info) Description 06/07/2025 2:00 PM EDT [facility] [address] [place] [id number] Vaibhav Abreu DO [address] [place] [address] Pre-op examination; Request for sterilization; Menorrhagia with regular cycle; Abnormal uterine bleeding (AUB); Pelvic pain; Well woman exam with routine gynecological exam Social History Tobacco Use Types Packs/Day Years Used Date Smoking Tobacco: Never Assessed Comments No Sex and Gender Information Value Date Recorded Sex Assigned at Not on file Legal Sex Female 11:17 AM EDT Gender Identity Not on file Sexual Orientation Not on file documented as of this encounter Last Filed Vital Signs Vital Sign Reading Time Taken Comments Blood Pressure 116/74 06/07/2025 2:02 PM EDT Pulse - - Temperature - - Respiratory Rate - - Oxygen Saturation - - Inhaled Oxygen Concentration - - Weight 67.6 kg (149 lb 1.9 oz) 06/07/2025 2:02 P M EDT Height - - Body Mass Index 27.27 04/29/2025 8:33 AM EDT documented in this encounter Progress Notes * Laurence Joyce - 06/07/2025 2:00 PM EDT Reason for Appointment: Patient ID: Karis Duval is a 34 y.o. female who presents for Gynecologic Exam and Pre-op Visit Patient presents today for Annual Exam. and Pre Op/Annual appointment. Patient is scheduled to undergo Da Isreal assisted Bilateral Laparoscopic Salpingectomy and Endometrial Ablation with Whitley on 06-25-[address] Abreu at [facility]. MEDICATIONS Current Outpatient Medications Medication Instructions FLUoxetine (PROZAC) 20 mg, Daily RT ALLERGIES Allergies Allergen Reactions Acetaminophen Hives PROBLEMS Active Ambulatory Problems Diagnosis Date Noted No Active Ambulatory Problems Resolved Ambulatory Problems Diagnosis Date Noted No Resolved Ambulatory Problems No Additional Past Medical History HISTORY PAST MEDICAL HISTORY SOCIAL HISTORY History reviewed. No pertinent past medical history. Social History Tobacco Use Smoking status: Not on file Smokeless tobacco: Not on file Substance Use Topics Alcohol use: Not on file Drug use: Not on file FAMILY HISTORY No family history on file. SURGICAL HISTORY Past Surgical History: Procedure Laterality Date LAPAROSCOPIC TUBAL LIGATION W/ FILCHIE CLIPS Bilateral 2019 Done in [place] REVIEW OF SYSTEMS Review of Systems: Review of Systems Constitutional: Negative. HENT: Negative. Eyes: Negative. Respiratory: Negative. Cardiovascular: Negative. Gastrointestinal: Negative. Genitourinary: Positive for menstrual problem, pelvic pain and vaginal bleeding. Musculoskeletal: Negative. Skin: Negative. Neurological: Negative. All other systems reviewed and are negative. Hematological: Negative. Endocrine: Negative. Allergic/Immunologic: Negative. OBJECTIVE Objective: Physical Exam Constitutional: Appearance: Normal appearance. She is well-developed. Genitourinary: Vulva normal. Breasts: Breasts are soft. Right: Normal. Left: Normal. Cardiovascular: Rate and Rhythm: Normal rate and [...] nursing note reviewed. Exam conducted with a pneumatic tube operator present. Vitals: Estimated body mass index is 27.27 kg/m?? as calculated from the following: Height as of 04/29/25: 5' 2 . Weight as of this encounter: 149 lb 1.9 oz. BP: 116/74 Patient's last menstrual period was 04/30/2025. ASSESSMENT & PLAN ICD-10-CM 1. Pre-op examination Z01.818 2. Request for sterilization Z30.2 3. Menorrhagia with regular cycle N92.0 4. Abnormal uterine bleeding (AUB) N93.9 5. Pelvic pain R10.2 6. Well woman exam with routine gynecological exam Z01.419 Pap Smear HPV DNA probe, amplified Annual: Patient presents today for an annual exam. Patient states she is doing well and has no complaints. Pap was obtained without difficulty. Pre Op: Patient is doing well but has complaints of menorrhagia, AUB, pelvic pain and requests sterilization (patient is going to have bilateral salpingectomy due to having filshe clips). I have discussed conservative management vs. surgical management with the patient in detail and patient desires surgical management at this time. Patient will undergo Da Isreal assisted Bilateral Laparoscopic Salpingectomy and Endometrial Ablation with Whitley on 06-25-25. Surgical consents were signed, mmc was reviewed,and patient is to proceed to [facility] OR. Follow Up: Patient is to follow up between 1-2 weeks post operative to assess proper healing and recovery fromprocedure. *-*Patient is to not lift heavy for at least 10 days after surgery*-* return to work 07/05/25 afterprocedure Documented by Beth Monroe LPN on behalf of: Vaibhav Abreu DO documented in this encounter Plan of Treatment Upcoming Encounters Date Type Department Care Team (Late st Contact Info) Description 07/08/2025 8:40 AM EDT [facility] Visit [facility] [address] [place] [address] Vaibhav Abreu DO [address] [place] [address] Scheduled Orders Name Type Priority Associated Diagnoses Orde r Schedule Pap Smear Pathology and Cytology Routine Well woman exam with routine gynecological exam Ordered: 06/07/2025 HPV DNA probe, amplified Microbiology Routine Well woman exam with routine gynecological exam Ordered: 06/07/2025 documented as of this encounter Visit Diagnoses Diagnosis Pre-op examination Request for sterilization Menorrhagia with regular cycle Abnormal uterine bleeding (AUB) Pelvic pain Well woman exam with routine gynecological exam Routine gynecological examination documented in this encounter Care Teams Palliative Care Nurse Relationship Specialty Start Date End Date Cam Garcia MD [address] [facility] [place] [address] PCP - General Family Medicine 04/29/25 documented as of this encounter
--- OUTSIDE RECORDS SUMMARY | 2025-06-10 09:54 | XMS_ITS | Encounter Summary ---
Author Organization [facility] Address [id number] [address] [place] [address] Care Team Providers Care Cat Dog Or Other Pet Groomer Name Role Phone Cam Garcia Primary Care Provider Encounter Details Date Type Department Care Team (Late st Contact Info) Description 10/05/2024 Telephone [facility] - Family Medicine [address] [place] [phone] Brittnee Lopez CMA Social History Tobacco Use Types Packs/Day Years Used Date Smoking Tobacco: Every Day Cigarettes 0.2 6.2 Started: 10/21/2003; Last attempted to quit: 10/21/2008 Smokeless Tobacco: Never Comments:Off and on smoker f rom [id number]. She would stop smoking with her pregnancies then restart Alcohol Use Standard Drinks/Week Comments Yes 0 (1 standard drink = 0.6 oz pur e alcohol) occasional [employer] Utilities Answer Date Recorded In the past 12 months has [employer] electric, gas, oil, or water company threatened [...] often do you attend chur ch or latter day services? Never 07/15/2024 Do you belong to any clubs o r organizations such as jain groups, unions, fraternal or athletic groups, or [...] Answer Date Recorded Total Score 11 07/15/2024 [facility] of Occupat ional Health - Occupational Stress [...] Recorded Do you need help finding a [facility] career center and/or a training [...] documented as of this encounter Care Teams Cat Dog Or Other Pet Groomer Relationship Specialty Start Date End Date Cam Garcia DO [address] [facility], [place] [address] PCP - General Family Medicine 07/15/24 documented as of this encounter
--- OUTSIDE RECORDS SUMMARY | 2025-06-10 09:54 | XMS_ITS | Encounter Summary ---
Author Organization [facility] Address [address] [facility] [address] Care Team Providers Care Lawn Mower Sharpener Name Role Phone Cam Garcia MD Primary Care Provider Encounter Details Date Type Department Care Team (Late Contact Info) Description 05/17/2025 Abstract [facility] [address] [place] [address] [place] [phone] Vaibhav Abreu DO [address] [place] [id number] Social History Tobacco Use Types Packs/Day Years [...] 8:40 AM EDT Office Visit [facility] [address] [place] [address] [place] [phone] Vaibhav Abreu DO [address], [id number] documented as of this encounter Visit Diagnoses Not on filedocumented in this encounter Care Teams Lawn Mower Sharpener Relationship Specialty Start Date End Date Cam Garcia MD [address] [facility], [place] [address] PCP - General Family Medicine 04/29/25 documented as of this encounter
--- OUTSIDE RECORDS SUMMARY | 2025-06-10 09:54 | XMS_ITS | Encounter Summary ---
Author Organization [facility] Address [id number] [address] [place] [address] Care Team Providers Care Route Manager Name Role Phone Cam Garcia Primary Care Provider Encounter Details Date Type Department Care Team (Late st Contact Info) Description 01/13/2025 Telephone [facility] - Family Medicine [address] [place] [phone] Brittnee Lopez CMA Social History Tobacco Use Types Packs/Day Years Used Date Smoking Tobacco: Every Day Cigarettes 0.2 6.2 Started: 10/21/2003; Last attempted to quit: 10/21/2008 Smokeless Tobacco: Never Comments:Off and on smoker f rom [id number]. She would stop smoking with her pregnancies then restart Alcohol Use Standard Drinks/Week Comments Yes 0 (1 standard drink = 0.6 oz pur e alcohol) occasional [employer] Utilities Answer Date Recorded In the past 12 months has [employer] electric, gas, oil, or water company threatened [...] often do you attend chur ch or presybeterian services? Never 07/15/2024 Do you belong to any clubs o r organizations such as presybeterian groups, unions, fraternal or athletic groups, or [...] Answer Date Recorded Total Score 11 07/15/2024 [facility] of Occupat ional Health - Occupational [...] Recorded Do you need help finding a [facility] career center and/or a training [...] documented as of this encounter Care Teams Route Manager Relationship Specialty Start Date End Date Cam Garcia DO [address], [place] [address] PCP - General Family Medicine 07/15/24 documented as of this encounter
--- OUTSIDE RECORDS SUMMARY | 2025-06-10 09:54 | XMS_ITS | Clinical Summary ---
Author Organization [facility] [employer] [facility] Address [id number] [address] [place] [address] Care Team Providers Care Jewelry Designer Name Role Phone Cam Garcia DO Primary Care Provider Allergies Active Allergy Reactions Criticality Noted Date Comments Tylenol-Codeine #2 Hives 07/15/2024 Medications albuterol-budeson jody (AIRSUPRA) 90-80 mcg/actuation HFA aerosol inhalerIndication s:Mild intermittent asthma without complication Inhale 2 puffs every 4 (four) hours as needed (wheeze, shortness of breath). 10.7 g 1 5 Active FLUoxetine (PROzac) 20 mg capsuleIndication s:Anxiety,Mild major depression Take 1 capsule (20 mg total) by mouth in the morning. 30 capsule 2 5 Active Active Problems Problem Noted Date Diagnosed Date Well adult health check 03/31/2025 Anxiety 03/31/2025 Dysmenorrhea 03/31/2025 Cigarette smoker 03/31/2025 Mild major depression 03/31/2025 Menorrhagia with regular cycle 03/31/2025 Encounters Date Type Department Care Team Description 04/02/2025 Telephone [facility] - Family Medicine [address] [place] [phone] Brittnee Lopez CMA 03/31/2025 9:00 AM EDT Office Visit [facility] - Family [facility] [address] [place] [phone] Cam Garcia DO Well adult health check (Primary Dx); Dysmenorrhea; Anxiety; Cigarette smoker; Menorrhagia with regular cycle; Mild major depression; Mild intermittent asthma without complication; Overweight (BMI 25.0-29.9) 03/31/2025 Travel from Last 3 Months Family History Medical History Relation Name Comments Bipolar disorder Mother Diabetes Sister Relation Name Status Comments Brother Alive Father Alive Mother Alive Sister Alive Social History Tobacco Use Types Packs/Day Years Used Date Smoking Tobacco: Every Day Cigarettes 0.2 6.2 Started: 10/21/2003; Last attempted to quit: 10/21/2008 Smokeless Tobacco: Never Tobacco Cessation:Ready to Q uit: No; Counseling Given: Yes Comments:Off and on smoker from [id number]. She would stop smoking with her pregnancies then restart Alcohol Use Standard Drinks/Week Comments Yes 0 (1 standard drink = 0.6 oz pur e alcohol) occasional [facility] Utilities Answer Date Recorded In the past 12 months has e [employer], gas, oil, or water [employer] threatened to shut off services in your [...] often do you attend chur ch or adventism services? Never 07/15/2024 Do you belong to any clubs o r organizations such as anabaptist groups, unions, fraternal or athletic groups, or school groups? No 07/15/2024 How often do you attend meet ings of the clubs or organizations you belong to? Never 07/15/2024 Are you , , di vorced, , never , or living with a partner? 07/15/2024 AUDIT-C Answer Date Recorded Q1: How often do you have a drink containing alc ohol? 2-4 times a month 03/31/2025 Q2: How many drinks containi ng alcohol do you have on a typical day when you are drinking? 3 or 4 03/31/2025 Q3: How often do you have si x or more drinks on one occasion? Never 03/31/2025 Overall Financial Resource Strain (CARDIA) Answe r Date Recorded How hard is it for you to pa y for the very basics like food, housing, medical care, and heating? Not hard at all 07/15/2024 PHQ-2 Answer Date Recorded Total Score 6 03/31/2025 [facility] of Occupat ional Health - Occupational Stress Questionnaire Answer Date Recorded Do you feel stress - tense, restless, nervous, or anxious, or unable to sleep at night because your mind is troubled all the time - these days? Rather much 03/31/2025 Exercise Vital Sign Answer Date Recorde d [...] Recorded Do you need help finding a [facility] career center and/or a training program? No 07/15/2024 Hunger Screening Answer Date Recorded Within the past 12 months we worried whether our food would run out before we got money to buy more. Never True 03/31/2025 Within the past 12 months th e food we bought just didn't last and we didn't have money to get more. Never True 03/31/2025 Purpose - Life Answer Date Recorded I have a purpose and direction in my life. Stron gly Agree 07/15/2024 Comments Unknown Sex and Gender Information Value Date Recorded Sex Assigned at Not on file Legal Sex Female 11:48 AM EDT Gender Identity Not on file Sexual Orientation Not on file Last Filed Vital Signs Vital Sign Reading Time Taken Comments Blood Pressure 108/60 03/31/2025 8:53 AM EDT Pulse 88 03/31/2025 8:53 AM EDT Temperature 36.8 C (98.2 F) 03/31/2025 8:53 AM EDT Respiratory Rate 20 03/31/2025 8:53 AM EDT Oxygen Saturation 98% 03/31/2025 8:53 AM EDT Inhaled Oxygen Concentration - - Weight 67.5 kg (148 lb 12.8 oz) 03/31/2025 8:53 AM EDT Height 157.5 cm (5' 2.01 ) 03/31/2025 8:53 AM ED T Body Mass Index 27.21 03/31/2025 8:53 AM EDT Plan of Treatment Health Maintenance Due Date Last Done Comments DTaP,Tdap and Td Vaccines (1 - Tdap) 2010 Pap Smear 2012 Influenza Vaccine 06/21/2025 Adult BMI Follow Up Plan 03/31/2026 03/31/2025 Adult BMI Screening 03/31/2026 03/31/2025 Depression Screening 03/31/2026 03/31/2025 Tobacco Screening 03/31/2026 03/31/2025 Tobacco Counseling 09/30/2026 03/31/2025 Medical Devices Not on file Procedures Procedure Name Priority Date/Time Associated Diagnosis Comments LIPID PROFILE Routine 03/31/2025 9:35 AM EDT Well adult health check COMPREHENSIVE METABOLIC PANEL Routine 03/31/2025 9:35 AM EDT Well adult health check from Last 3 Months Results * (ABNORMAL) Lipid profile (03/31/2025 9:35 AM EDT) CHOLESTEROL 204(H) 150 - 200 mg/dL 03/31/2025 6:26 PM EDT [facility] TRIGLYCERIDE 163(H) 27 - 150 mg/dL 03/31/2025 6:26 PM EDT [facility] HDL CHOLESTEROL 63 >39 mg/dL 6:26 PM EDT [facility] Comment: HDL <40 mg/dL - High Risk HDL > or = 40mg/dL- Desirable HDL >60 mg/dL - Negative Risk LDL (CALC) 108 <130 mg/dL 03/31/2025 6:26 PM EDT [facility] Comment: LDL <100 mg/dL - Desirable LDL >160 mg/dL - High Risk CHOLESTEROL:HDL 3.2 1.0 - 5.0 6:26 PM EDT [facility] VERY LOW LIPOPROTEIN 33(H) 0 - 30 mg/dL 03/31/2025 6:26 PM EDT [facility] Blood Venous blood / Unknown 03/31/2025 9:35 AM EDT 03/31/2025 9:35 AM EDT us Cam Garcia DO LAB BLOOD ORDERABLES Final R esult [facility] [address] [place] [address], [place] [phone] * (ABNORMAL) Comprehensive metabolic panel (03/31/2025 9:35 AM EDT) SODIUM 139 134 - 146 mmol/L 03/31/2025 6:26 PM EDT [facility] POTASSIUM 4.2 3.5 - 5.0 mmol/L 03/31/2025 6:26 PM EDT [facility] CHLORIDE 105 98 - 109 mmol/L 03/31/2025 6:26 PM EDT [facility] CARBON DIOXIDE 23 22 - 32 mmol/L 03/31/2025 6:26 PM EDT [facility] ANION GAP 11 5 - 15 mmol/L 03/31/2025 6:26 PM EDT [facility] BLOOD UREA NITROGEN 16 5 - 23 mg/dL 03/31/2025 6:26 PM EDT [facility] CREATININE 0.66 0.40 - 1.00 mg/dL 03/31/2025 6:26 PM EDT [facility] Comment:METHOD TRACEABLE TO IDMS STANDARD GLUCOSE 91 65 - 99 mg/dL 03/31/2025 6:26 PM EDT [facility] CALCIUM 9.9 8.5 - 10.5 mg/dL 03/31/2025 6:26 PM EDT [facility] TOTAL PROTEIN 7.5 6.0 - 8.0 g/dL 03/31/2025 6:26 PM EDT [facility] ALBUMIN 4.7 3.2 - 5.3 g/dL 03/31/2025 6:26 PM EDT [facility] ALKALINE PHOSPHATASE 63 39 - 130 U/L 03/31/2025 6:26 PM EDT [facility] AST 16 <=41 U/L 03/31/2025 6:26 PM EDT [facility] ALT 12 <=31 U/L 03/31/2025 6:26 PM EDT [facility] BILIRUBIN,TOTAL 0.2(L) 0.3 - 1.2 mg/dL 03/31/2025 6:26 PM EDT [facility] EGFR Non-Race Dependent >90 >=60 ml/min/1.7 3sq.m 03/31/2025 6:26 PM EDT [facility] Comment: Reported eGFR is based on the CKD-EPI 2020 equation that does not use a race coefficient. Blood Venous blood / Unknown 03/31/2025 9:35 AM EDT 03/31/2025 9:35 AM EDT us Cam Garcia DO LAB BLOOD ORDERABLES Final R esult [facility] [address] [place] [address], from Last [address] [place] [address] [place] [address] MEDICAID Care Teams Jewelry Designer Relationship Specialty Start Date End Date Cam Garcia DO [address] [facility], [place] [address] PCP - General Family Medicine 07/15/24
--- OUTSIDE RECORDS SUMMARY | 2025-06-10 09:54 | XMS_ITS | Clinical Summary ---
Author Organization [facility] Address [address] [place] [address] Care Team Providers Care Care Aide Name Role Phone Cam Garcia MD Primary Care Provider Allergies Active Allergy Reactions Criticality Noted Date Comments Acetaminophen Hives 07/15/2024 Codeine Unknown 06/07/2025 Medications FLUoxetine (PROzac) 20 MG capsule Take 20 mg by mouth in the morning. 03/31/2025 Active Encounters Date Type Department Care Team Description 06/07/2025 2:00 PM EDT [place] [address] Vaibhav Abreu DO Pre-op examination; Request for sterilization; Menorrhagia with regular cycle; Abnormal uterine bleeding (AUB); Pelvic pain; Well woman exam with routine gynecological exam 05/17/2025 3:30 PM EDT [place] [address] Vaibhav Abreu DO Irregular menstrual cycle 05/17/2025 [place] [address] Vaibhav Aberu DO 04/29/2025 8:50 AM EDT [place] [address] Vaibhav Abreu DO Irregular periods/menstrual cycles; PCOS (polycystic ovarian syndrome) 04/29/2025 Bamboo [place] [address] Vaibhav Abreu DO 04/28/2025 Travel from Last [...] EDT Office Visit [facility] [address] [place] [address] Vaibhav Abreu DO [address] [place] [address] [place] [address] Procedures Procedure Name Priority Date/Time Associated Diagnosis Comments POCT , URINE Routine 05/17/2025 4:13 PM EDT Irregular menstrual cycle from Last 3 Months Results * POCT , urine manually resulted (05/17/2025 4:13 PM EDT) Preg Test, Ur Negative Negative Urine 05/17/2025 4:13 PM EDT Result [facility] Vaibhav Abreu DO POINT OF CARE TEST ENTER/EDIT OR DERABLES Final Result from Last 3 Months Insurance [facility] MEDICAID Care Teams Care Aide Relationship Specialty Start Date End Date Cam Garcia MD [address] [facility], [place] [address] PCP - General Family Medicine 04/29/25
--- OUTSIDE RECORDS SUMMARY | 2025-06-10 10:15 | XMS_ITS | CCD ---
Author Organization [facility] Care Team Providers Care Ruffling Machine Operator Name Role Phone JAKUB BURGER Consulting Unavailabl e REQUEST, DR CHRISTIANSEN LISTED Primary Care Unavaila lucas MARTELL ., DR LAGUNAS Attending Unavailable JAYSHREE ., DR LAGUNAS Admitting Unavailable Cam Garcia DO Primary Care Provider Cam Garcia DO Primary Care Provider Cam Garcia MD Primary Care Provider [phone] Kris Abreu DO Attending Provider Kris Abreu Attending Unavailable Kris Abreu Admitting Unavailable KRIS ABREU Attending Unavailable KRIS ABREU Attending Unavailable KRIS ABREU Attending Unavailable Allergies Allergy Classification Reported Allergen(s) Allergy Type Date of Onset Reaction(s) Facility (1 source) Codeine Drug Allergy 9 [facility] Repository (5 sources) Tylenol-Codeine #2 Propensity to adverse reactions to drug 4 [facility] (4 sources) [facility]et[facility] ([facility] Codeine Drug Allergy 5 Unknown [facility] Healthcare Medications Current Medications Medication Drug Class(es) [...] Drug Class(es) Dates Sig (Normalized) Sig (Original) [id number] 200 actuat albuterol 0.09 mg/actuat metered dose [...] [facility] L Specimen: [id number] Received: 05/18/25 Status: KRYSTA Draper Num: [id number] Spec Type: Surgical Subm Dr: Kris Abreu Tissues: A Endometrium - Biopsy (ENDOMETRIUM BX) Procedures: HE/2, Gross/Micro L4 Age/ Patient Sex Location Account Attending Physician Karis Duval 34/F LABELL [id number] Kris Abreu SPEC NUM: [id number] RECD: 05/18/25 STATUS: KRYSTA DRAPER NUM: [id number] MARÍA: 05/17/[address] [facility] DR: Kris Abreu ENTERED: 05/18/[address]: Duyen,Lab SPEC TYPE: Surgical DEPT: [place] [facility] ENTERED BY: [id number] RECV BY: [id number] ORDERED: HE/2, Gross/Micro L4 ORDERED: HE/2, Gross/Micro [...] submitted in a single cassette. (1, ns, [id number]) Microscopic Description Microscopic examination is performed. Specimen: [id number] Received: 05/18/25 Status: KRYSTA Draper Num: [id number] Spec Type: Surgical Subm Dr: Kris Abreu Tissues: A Endometrium - Biopsy (ENDOMETRIUM BX) Procedures: HE/2, Gross/Micro L4 Patient: Karis Duval [id number] (Continued) Specimen: [id number] Received: 05/18/25 (Continued) Signed (signatur e on file) Jovan Hoover MD 05/19/25 1115 Specimen: [id number] Received: 05/18/25 Status: KRYSTA Draper Num: [id number] Spec Type: Surgical Subm Dr: Kris Abreu Tissues: A Endometrium - Biopsy (ENDOMETRIUM BX) Procedures: /Nancy, Marylou/Dara L4 Patient: Karis Duval [id number] (Continued) Specimen: [id number] Received: 05/18/25 (Continued) CPT Codes 83823 Specimen: [id number] Received: 05/18/25 Status: KRYSTA Draper Num: [id number] Spec Type: Surgical Subm Dr: Kris Abreu Tissues: A Endometrium - Biopsy (ENDOMETRIUM BX) Procedures: HE/2, Gross/Micro L4 Patient: Karis Duval [id number] (Continued) Signed (signatur e on file) Jovan Hoover MD 05/19/25 1115 Normal [facility] Comprehensive metabolic pane juan 03-31-2025 Albumin [Mass/Vol] 4.7 g/dL 3.2 - 5.3 g/dL Pr [employer] [facility] ALP [Catalytic activity/Vol] 63 U/L 39 - 130 U/L [facility] [employer] [facility] ALT No additional P-5'-P [Catalytic activity/Vol] 12 U/L NINF - 31 U/L [employer] [facility] Anion gap [Moles/Vol] 11 mmol/L 5 - 15 mmol/L [employer] System AST [Catalytic activity/Vol] 16 U/L NINF - 41 U/L [facility] Bilirubin [Mass/Vol] 0.2 mg/dL Low 0.3 - 1.2 mg/dL [facility] Calcium [Mass/Vol] 9.9 mg/dL 8.5 - 10. 5 mg/dL [facility] Chloride [Moles/Vol] 105 mmol/L 98 - 109 mmol/L [facility] CO2 [Moles/Vol] 23 mmol/L 22 - 32 mmol/L [facility] Creatinine [Mass/Vol] 0.66 mg/dL 0.40 - 1.00 mg/dL [facility] Comment on above: METHOD TRACEABLE TO IDIA STANDARD EGFR Non-Race Dependent - PINF [facility] Comment on above: Reported eGFR is bas ed on the CKD-EPI 2020 equation that does not use a race coefficient. Glucose [Mass/Vol] 91 mg/dL 65 - 99 mg/dL [facility] Potassium [Moles/Vol] 4.2 mmol/L 3.5 - 5.0 mmol/L [facility] Protein [Mass/Vol] 7.5 g/dL 6.0 - 8.0 g/dL [facility] Sodium [Moles/Vol] 139 mmol/L 134 - 146 mmol/L [facility] Urea nitrogen [Mass/Vol] 16 mg/dL 5 - 23 mg/dL [facility] Lipid profileon 03-31-2025 Cholesterol [Mass/Vol] 204 mg/dL High 150 - 200 mg/dL [facility] Cholesterol in HDL [Mass/Vol] 63 mg/dL 39 - PINF mg/dL [facility] Comment on above: HDL <40 mg/dL - High Risk HDL > or = 40mg/dL- Desirable HDL >60 mg/dL - Negative Risk Cholesterol in HDL [Mass/Vol] 3.2 mg/dL 1.0 - 5.0 [facility] Cholesterol in LDL [Mass/Vol] 108 mg/dL NINF - 130 mg/dL [facility] Comment on above: LDL <100 mg/dL - Dani irable LDL >160 mg/dL - High Risk Cholesterol in VLDL [Mass/Vol] 33 mg/dL High 0 - 30 mg/dL [facility] Triglyceride [Mass/Vol] 163 mg/dL High 27 - 150 mg/dL [facility] No Panel Informationon 03-31 Interpretation and review of laboratory results Abnormal [facility] Vital Signs Date Time Vital Sign Value Performing Clinician Facility 06-07-2025 14:02-0400 Body mass index (BMI) [Ratio] 27.27 kg/m2 Kris Lois DO Work Phone: [facility] 06-07-2025 14:02-0400 Body weight 67.64 kg Kris Lois DO Work Phone: [facility] 06-07-2025 14:02-0400 Diastolic blood pressure 74 mm[Hg] Kris Lois DO Work Phone: [facility] 06-07-2025 14:02-0400 Systolic blood pressure 116 mm[Hg] Kris Lois DO Work Phone: [facility] 05-17-2025 16:04-0400 Body mass index (BMI) [Ratio] 27.25 kg/m2 Kris Lois DO Work Phone: [facility] 05-17-2025 16:04-0400 Body weight 67.59 kg Kris Lois DO Work Phone: [facility] 05-17-2025 16:04-0400 Diastolic blood pressure 80 mm[Hg] Kris Lois DO Work Phone: [facility] 05-17-2025 16:04-0400 Systolic blood pressure 120 mm[Hg] Kris Lois DO Work Phone: [facility] 04-29-2025 08:33-0400 Body height 157.5 cm Kris Lois DO Work Phone: [facility] 04-29-2025 08:33-0400 Body mass index (BMI) [Ratio] 27.07 kg/m2 Kris Lois DO Work Phone: [facility] 04-29-2025 08:33-0400 Body weight 67.13 kg Kris Lois DO Work Phone: [facility] 04-29-2025 08:33-0400 Diastolic blood pressure 72 mm[Hg] Kris Lois DO Work Phone: [facility] 04-29-2025 08:33-0400 Systolic blood pressure 118 mm[Hg] Kris Lois DO Work Phone: [facility] 03-31-2025 08:53-0400 Body height 157.5 cm Cam Furlong DO Work Phone: [facility] 03-31-2025 08:53-0400 Body mass index (BMI) [Ratio] 27.21 kg/m2 Cam Furlong DO Work Phone: [facility] 03-31-2025 08:53-0400 Body temperature 98.2 [degF] Cam Furlong DO Work Phone: [facility] 03-31-2025 08:53-0400 Body weight 67.5 kg Cam Furlong DO Work Phone: [facility] [employer] [facility] 03-31-2025 08:53-0400 Diastolic blood pressure 60 mm[Hg] Cam Furlong DO Work Phone: [facility] [employer] [facility] 03-31-2025 08:53-0400 Heart rate 88 /min Cam Furlong DO Work Phone: [facility] 03-31-2025 08:53-0400 Respiratory rate 20 /min Cam Furlong DO Work Phone: [facility] 03-31-2025 08:53-0400 SaO2% (BldA) [Mass fraction] 98 % Cam Furlong DO Work Phone: [facility] 03-31-2025 08:53-0400 Systolic blood pressure 108 mm[Hg] Cam Furlong DO Work Phone: [facility] 07-15-2024 10:20-0400 Body height 157.5 cm Cam [employer] [facility] 07-15-2024 10:20-0400 Body mass index (BMI) [Ratio] 28.53 kg/m2 Cam [employer] DO Work Phone[facility] 07-15-2024 10:20-0400 Body temperature 98.49 [degF] Cam [employer]VideoBurst Work Phone[facility] 07-15-2024 10:20-0400 Body weight 70.76 kg Cam RamonVideoBurst Work Phone[facility] 07-15-2024 10:20-0400 Diastolic blood pressure 70 mm[Hg] Cam [employer] Work [facility] 07-15-2024 10:20-0400 Heart rate 85 /min [employer] Work Phone[facility] 07-15-2024 10:20-0400 SaO2% (BldA) [Mass fraction] 95 % Cam RamonVideoBurst Work Phone[facility] 07-15-2024 10:20-0400 Systolic blood pressure 112 mm[Hg] Cam RamonVideoBurst Work Phone: [facility] Complete Encounters Encounter Date Encounter Type Care Provider Facility Start: 06-07-2025 End: 06-07-2025 Patient encounter procedure Kris Abreu [employer] Work Phone: [facility] [employer] Work Phone: Start: 06-07-2025 End: 06-07-2025 Periodic preventive med est patient 18-39 yrs Kris Abreu DO Work Phone: [facility] Comment on above: Pre-op examination; Request for sterilization; Menorrhagia with regular cycle; Abnormal uterine bleeding (AUB); Pelvic pain; Well woman exam with routine gynecological exam Start: 06-07-2025 End: 06-07-2025 Preprocedural examination done Kris Lois DO Work Phone: [facility] Start: 06-07-2025 End: 06-07-2025 ambulatory KRIS LOIS Not Available Start: 05-17-2025 End: 05-17-2025 Departed Referred Kris Lois -[facility] Start: 05-17-2025 End: 05-17-2025 ambulatory Kris Lois [facility] Work Phone: Start: 05-17-2025 End: 05-17-2025 Patient encounter procedure [...] End: 04-12-2025 Telephone encounter Brittnee Lopez CMA [facility] Internal Medicine - Family Medicine Start: 03-31-2025 End: 03-31-2025 Patient encounter status Cam Darrius Navarrogretchen DO Work Phone: [facility] [employer] [facility] Start: 03-31-2025 End: 03-31-2025 Periodic preventive med est patient 18-39 yrs Cam Darrius Jose DO Work Phone: [facility] - [facility] Comment on above: Well adult health ch david (Primary Dx); Dysmenorrhea; Anxiety; Cigarette smoker; Menorrhagia with regular cycle; Mild major depression; Mild intermittent asthma without complication; Overweight (BMI 25.0-29.9) Start: 01-12-2025 End: 01-12-2025 Refill Holly Adam CLINICAL EDUCATION COORDINATOR [facility] Start: 09-01-2024 End: 09-01-2024 Refill Cam Garcia DO Work Phone: [facility] Start: 07-15-2024 End: 07-15-2024 Office outpatient new 45 minutes Cam Garcia DO Work Phone: [facility] - Family Medicine [...] 03-31-2025 Adult depression scr eening assessment Cam Garcia DO Work Phone: Start: 07-15-2024 Adult depression scr eening assessment Cam Garcia DO Work Phone: Plan of Treatment Date Care Activity Detail Author Start: 09-30-2026 Tobacco Counseling Tobacco Counselin g [facility] [facility] Start: 03-31-2026 Adult BMI Follow Up Plan Adult BMI F ollow Up Plan [facility] Start: 03-31-2026 Adult BMI Screening Adult BMI Screen ing [facility] Start: 03-31-2026 Depression Screening Depression Scre ening [facility] Start: 03-31-2026 Tobacco Screening Tobacco Screening [facility] Start: 07-15-2025 Adult BMI Screening Adult BMI Screen ing [facility] Start: 07-15-2025 Depression Screening Depression Scre ening [facility] Start: 07-15-2025 Tobacco Screening Tobacco Screening [facility] Start: 07-08-2025 End: 07-08-2025 Patient encounter procedure 07/08/2025 8:40 AM EDT Office Visit [facility] [address] [place] [id number] Kris Abreu, DO [address] [place] [address] [facility] Start: 06-21-2025 Influenza vaccination Influenza Vacc ine [facility] Start: 06-03-2025 End: 06-03-2025 Patient encounter procedure 06/03/2025 9:00 AM EDT Office Visit [facility] Internal [facility] - Family Medicine [address] [place] [address] Cam Garcia, DO [address] [place] [address] [facility] Start: 06-02-2025 End: 06-02-2025 Patient encounter procedure [facility] Start: 05-17-2025 End: 05-17-2025 Patient encounter procedure 05/17/2025 3:30 PM EDT Procedure Visit [facility] [address] [place] [id number] Kris Abreu, DO [address] [place], [place] [id number] [facility] Start: 04-29-2025 End: 04-29-2026 [...] EDT Office Visit [facility] [address] [place] [address] Kris Abreu DO [address] [place] [address] Arrived [facility] Comment on above: Arrived Start: 01-18-2025 End: 01-18-2025 Patient encounter procedure 01/18/2025 4:15 PM EDT Office Visit [facility] - [facility] Medicine [address] [place] [address] Cam Garcia, DO [address] [place] [address] [facility] Start: 06-21-2024 Influenza vaccination Influenza Vacc ine [facility] Start: 2012 Screening for malign ant neoplasm of cervix Pap Smear [facility] Start: 2010 DTaP,Tdap and Td Vaccines (1 - Tdap) DTaP,Tdap and Td Vaccines (1 - Tdap) [facility] Start: 2009 Adult BMI Follow Up Plan Adult BMI F ollow Up Plan [facility] Start: 1991 Tobacco Counseling Tobacco Counselin g [facility] CBC W Auto Different ial panel - Blood CBC and differential Lab Routine Irregular periods/menstrual cycles Ordered: 04/29/2025 [facility] Comment on above: Ordered: 04/29/2025 Cytology Cervical or vaginal smear or scraping study Pap Smear Pathology and Cytology Routine Well woman exam with routine gynecological exam Ordered: 06/07/2025 [facility] Work Phone: Comment on above: Ordered: 06/07/2025 DHEA-sulfate DHEA-sulfate Lab Routine Irregular periods/menstrual cycles Ordered: 04/29/2025 [facility] Comment on above: Ordered: 04/29/2025 Follicle stimulating hormone Follicle stimulating hormone Lab Routine Irregular periods/menstrual cycles Ordered: 04/29/2025 [facility] Comment on above: Ordered: 04/29/2025 hCG, quantitative, hCG, quantitative, Lab Routine Irregular periods/menstrual cycles Ordered: 04/29/2025 [facility] Work Phone: Comment on above: Ordered: 04/29/2025 Hemoglobin A1c/Hemoglobin.total in Blood Hemoglobin A1c Lab Routine Irregular periods/menstrual cycles Ordered: 04/29/2025 [facility] Comment on above: Ordered: 04/29/2025 Human papilloma viru s DNA [Presence] in Unspecified specimen by Probe with amplification HPV DNA probe, amplified Microbiology Routine Well woman exam with routine gynecological exam Ordered: 06/07/2025 [facility] Comment on above: Ordered: 06/07/2025 Luteinizing hormone Luteinizing hormone Lab Routine Irregular periods/menstrual cycles Ordered: 04/29/2025 [facility] Comment on above: Ordered: 04/29/2025 End: [...] Lab Routine Irregular periods/menstrual cycles Ordered: 04/29/2025 [facility] Comment on above: Ordered: 04/29/2025 Thyroxine (T4) free [Mass/volume] in Serum or Plasma T4, free Lab Routine Irregular periods/menstrual cycles Ordered: 04/29/2025 [facility] Comment on above: Ordered: 04/29/2025 Tissue exam Tissue exam Path ology and Cytology Routine Irregular menstrual cycle Ordered: 05/17/2025 [facility] Work Phone: Comment on above: Ordered: 05/17/2025 Payers Date Payer Category Payer Self-pay 2025 Private Health Insurance [facility] MEDICAID [id number] 2025 Medicaid [id number] 2024 Medicaid [facility] [id number] 2024 Medicaid [id number] 1991 Unknown [id number] 1991 Unknown [id number] 1991 Unknown [id number] 1991 Unknown [id number] 1959 Medicaid [id number] Unknown [id number] Social History Date Type Detail Facility Start: 10-21-2003 Tobacco smoking stat [facility] Smokes tobacco daily [facility] Start: 10-21-2003 End: 10-21-2008 History of tobacco use Cigarette Smoker [facility] Start: 07-15-2024 End: 03-31-2025 Cigarettes smoked current (pack per day) - Reported 0.1 [facility] Start: 07-15-2024 Tobacco use and exposure Smokeless tobacco non-user [facility] Start: 07-15-2024 End: 03-31-2025 Alcoholic beverage intake Current drinker of alcohol (finding) [facility] Start: 07-15-2024 End: 03-31-2025 [facility] [employer] [facility] Has the Vign[employer], or Holaira threatened to shut off services in your home in past 12Mo No [facility] Are you now , , , , never or living with a partner? [facility] How often to you hav e a drink containing alcohol? 2-4 times a month [facility] How many standard drinks containing alcohol do you have on a typical day? 3 or 4 [facility] How often do you hav e 6 or more drinks on 1 occasion? Never [facility] How hard is it for y ou to pay for the very basics like food, housing, medical care, and heating Not hard at all [facility] Do you feel stress - tense, restless, nervous, or anxious, or unable to sleep at night because your mind is troubled all the time - these days [OSQ] Rather much [facility] Start: 07-15-2024 Tobacco Comment Off and on smo ker from . She would stop smoking with her pregnancies then restart [facility] Start: 07-15-2024 Alcohol Comment occasional [facility] Start: 1990 Sex assigned at Not on file [facility] Start: 05-26-2015 Sex Female (finding) [facility] Tobacco smoking stat [facility] Tobacco smoking consumption unknown [facility] Start: 1990 Sex Assigned At Female F [facility] Functional Status Date Assessment Result Facility 03-31-2025 Total score [AUDIT-C] 3 03/31/20 9:27 AM EDT Cam Garcia, DO [facility] Clinical Notes 07-15-2024 to 06-07-2025 Laurence Joyce - 06/07/2025 2:00 PM EDTBarbara Byers NP - 05/17/2025 3:30 PM EDTSluis m Monroe LPN - 04/29/2025 8:50 AM EDTTelephone [...] on 06-25-[address] Abreu at [facility]. MEDICATIONS Current Outpatient Medications Medication Instructions [...] W/ FILCHIE CLIPS Bilateral 2019 Done in [place] REVIEW OF SYSTEMS Review [...] nursing note reviewed. Exam conducted with a chair pad maker present. Vitals: Estimated body mass index is [...] reviewed, and patient is to proceed to [facility] OR. Follow Up: Patient is to follow up between 1-2 weeks post operative to assess proper healing and recovery from procedure. *-*Patient is to not lift heavy for at least 10 days after surgery*-* return to work 07/05/25 after procedure Documented by Beth Monroe LPN on behalf of: Kris Abreu DO documented in this encounter [facility] 05-17-2025 History of Presen t illness [...] Kris Abreu DO documented in this encounter [facility] 04-29-2025 History of Presen t illness [...] nursing note reviewed. Exam conducted with a chair pad maker present. Vitals: Estimated body mass index is [...] her pain. Pt has clotting and in [place] had a salpingectomy w/FILCHE CLIPS. Discussed procedure with patient in regards to surgical management with Ablation with Salpingectomy. Patient to have labs and US will be obtained. Patient will schedule Endometrial Biopsy and US prior to leaving office today. Documented by Beth Monroe LPN on behalf of: Kris Abreu DO documented in this encounter [facility] 04-02-2025 Miscellaneous Notes Formattin g of [...] DO Patient notified documented in this encounter [facility] 04-02-2025 Telephone encount er Note ----- [...] 6:26 PM EDT To: Cam Garcia DO [facility] 04-02-2025 Telephone encount er Note Patient notified [facility] 03-31-2025 History of Presen t illness [...] would like to establish with a local superintendent distribution for her female exams. We will send a referral to the superintendent distribution at [facility]. She declined Tdap booster Dysmenorrhea - [...] Gynecology - Consult (Non-[facility]); Future Refer to allopathic doctor Mild major depression - FLUoxetine (PROzac) 20 [...] prescribed diet education. documented in this encounter [facility] 01-12-2025 Miscellaneous Notes Formattin g of this note might be different from the original. Prescription sent in. She is due for a wellness anytime. She was only seen once for new patient visit back in June documented in this encounter [facility] 01-12-2025 Telephone encount er Note Prescription sent in. She is due for a wellness anytime. She was only seen once for new patient visit back in June [facility] 07-15-2024 History of Presen t illness [...] put on. She was told by the PAINTING CONTRACTOR that it might cause pain down the [...] she had allergies. She is originally from [place] and moved up here recently. She was [...] that time. documented in this encounter [facility] Evaluation note Diagnosis Anxiety- Primary Anxiety state, unspecified Overweight Cigarette smoker Tobacco use disorder Moderate major depression ([facility]) Major depressive disorder, single episode, moderate Reactive airway disease without complication, unspecified asthma severity, unspecified whether persistent documented in this encounter [facility]* Diagnosis Well adult health check- Primary Unspecified general medical examination Dysmenorrhea Anxiety Anxiety state, unspecified Cigarette smoker Tobacco use disorder Menorrhagia with regular cycle Mild major depression Major depressive disorder, single episode, mild Mild intermittent asthma without complication Overweight (BMI 25.0-29.9) Overweight [facility] Diagnosis Irregular periods/menstrual cycles PCOS (polycystic ovarian syndrome) Polycystic ovaries documented in this encounter [facility] Healthcare[facility]* Diagnosis Irregular menstrual cycle documented in this encounter [facility] HealthcareEvaluation noteNo assessment information [facility] Work Phone: Evaluation note* Diagnosis Pre-op examination Request for sterilization Menorrhagia with regular cycle Abnormal uterine bleeding (AUB) Pelvic pain Well woman exam with routine gynecological exam Routine gynecological examination documented in this encounter [facility] HealthcareInstructionsNot on filedocumented in this encounterProProtestant Hospital SystemInstructionsNot on filedocumented in this encounterProProtestant Hospital SystemInstructionsNot on filedocumented in this encounterProProtestant Hospital SystemInstructionsNot on filedocumented in this encounterProProtestant Hospital System InstructionsNot on filedocumented in this encounterOhioHealth Arthur [facility] SystemReason for referral (narrative)No reason for referral information availableThe [facility] Of [facility] Work Phone: Summary Purpose Family History No Family History Records FoundNo Family History Records FoundNo Family History Records Found Advance Directives No Advanced Directives Records FoundNo Advanced Directives Records FoundNo Advanced Directives Records Found Additional Source Comments INFORMATION SOURCE (unrecogn ized section and content) DATE CREATED AUTHOR 03/29/2023 [facility] DATE CREATED AUTHOR AUTHOR'S ORGANIZ ATION 05/20/2025 [facility] DATE CREATED AUTHOR AUTHOR'S ORGANIZ ATION 06/08/2025 [facility] EPIC Reason for Visit [...] Care Teams (unrecognized sec tion and content) Ruffling Machine Operator Relationship Specialty Start Date End Date Cam Garcia DO [address], [facility] [place] [address] PCP - General Family Medicine 07/15/24 Ruffling Machine Operator Relationship Specialty Start Date End Date Cam Garcia DO [address], [place] [address] PCP - General Family Medicine 07/15/24 Ruffling Machine Operator Relationship Specialty Start Date End Date Cam Garcia DO [address], [facility] [place] [address] PCP - General Family Medicine 07/15/24 Ruffling Machine Operator Relationship Specialty Start Date End Date Cam Garcia DO [address], [place] [address] PCP - General Family Medicine 07/15/24 Ruffling Machine Operator Relationship Specialty Start Date End Date Cam Garcia DO [address], [place] [address] PCP - General Family Medicine 07/15/24 Ruffling Machine Operator Relationship Specialty Start Date End Date Cam Garcia MD [address], [place] [address] PCP - General Family Medicine 04/29/25 Ruffling Machine Operator Relationship Specialty Start Date End Date Cam Garcia MD [address], [place] [address] PCP - General Family Medicine 04/29/25 Ruffling Machine Operator Relationship Specialty Start Date End Date Cam Garcia MD [address], [place] [address] PCP - General Family Medicine 04/29/25 Team Status: Inactive Member Role Status Dates Kris Abreu DO Attending Provider Active Start : May 17, 2025 End: May 17, 2025 Ruffling Machine Operator Relationship Specialty Start Date End Date Cam Garcia MD [address], [place] [address] PCP - General Family Medicine 04/29/25 Goals [...] BE BASED ON THE PRIMARY CLINICAL RECORDS. [facility]. provides no warranty or guarantee of the accuracy or completeness of information in this document.
== END 2025-06-10 09:51 | disposition home or self-care (01) ==
LOC: PST 09:52
PROVIDERS: PCP Family Medicine; Visit Provider Obstetrics & Gynecology
DX: Z01.818 Encounter for other preprocedural examination (principal); N92.0 Excessive and frequent menstruation with regular cycle; N93.9 Abnormal uterine and vaginal bleeding, unspecified; R10.2 Pelvic and perineal pain

== ENCOUNTER 2025-06-25 08:09 | Day surgery (SDC) | payer OTHER, SELFPAY ==
[2025-06-10 10:19] VITALS: BP 108/71; PULSE 77; TEMP 36.3; O2SAT 97; BMI 28.0
[2025-06-25] VITALS (10 sets, daily range): BP systolic 98–127; BP diastolic 41–56; PULSE 72–98; TEMP 36.1–36.7; O2SAT 92–97; BMI 29.0
--- OUTSIDE RECORDS SUMMARY | 2025-06-25 08:13 | XMS_ITS | CCD ---
Author Organization [facility] Informformerly [facility] Partnership [facility] Care Team Providers Care [employer] Electrician Name Role Phone JAKUB BURGER Consulting Unavailabl e REQUEST, DR CHRISTIANSEN LISTED Primary Care Unavaila lucas MARTELL ., DR LAGUNAS Attending Unavailable JAYSHREE ., DR LAGUNAS Admitting Unavailable Cam Garcia DO Primary Care Provider [phone] Cam Garcia DO Primary Care Provider Cam Garcia MD Primary Care Provider [phone] Kris Abreu DO Attending Provider [phone] Kris Abreu Attending Unavailable Kris Abreu Admitting Unavailable KRIS ABREU Attending Unavailable KRIS ABREU Attending Unavailable KRIS ABREU Attending Unavailable Allergies Allergy Classification Reported Allergen(s) Allergy Type Date of Onset Reaction(s) Facility (1 source) Codeine Drug Allergy 9 [facility] Repository (5 sources) Tylenol-Codeine #2 Propensity to adverse reactions to drug 4 [facility] (5 sources) Acetaminophen Drug Allergy 4 [facility] (2 sources) Codeine Drug Allergy 5 Unknown [facility] Healthcare Medications Current Medications Medication Drug Class(es) [...] 03/31/2025 Active FLUoxetine 20 mg oral capsule (13 sources) Serotonin Reuptake Inhibitor Start: 03-31-2025 take [...] Drug Class(es) Dates Sig (Normalized) Sig (Original) [id number] 200 actuat albuterol 0.09 mg/actuat metered dose [...] Results Test Name Value Interpretation Reference Range Facility IGP,APTIMA HPV,AGE GDLNon AGE GDLN ACOG TESTING Note . [facility] Comment on above: TESTS RESULT FLAG UN ITS REF RANGE LAB Clinician Provided Cytology Information Source.............Cervix;Endocervix No. of containers..01 ThinPrep Vial Age Allison Rayo... 31 FLAG LEGEND: L-Low Normal,H-High Normal,LL-Alert Low,HH-Alert High <-Panic Low,>-Panic High,A-Abnormal,AA-Critical Abnormal Performed at: 01 =[address] [address] Kerry Kelley MD, HPV APTIMA Negative Negative [facility] Comment on above: This nucleic acid am plification test detects fourteen high- risk HPV types (16,18,31,33,35,39,45,51,52,56,58,59,66,68) without differentiation. Performed at: =[facility] [id number] Chairlift Operator: Kerry Kelley MD, Phone: [phone] Performed at: [address] [id number] Chairlift Operator: Kerry Kelley MD, Phone: [phone] IGP, APTIMA HPV, RFX [birth year] Note . [facility] Comment on above: TESTS RESULT FLAG UN ITS REF RANGE LAB DIAGNOSIS: 02 NEGATIVE FOR INTRAEPITHELIAL LESION OR MALIGNANCY. CELLULAR CHANGES ASSOCIATED WITH INFLAMMATION ARE PRESENT. Specimen adequacy: 02 Satisfactory for evaluation. Endocervical and/or squamous metaplastic cells (endocervical component) are present. Performed by: Karis Waller, [employer] ([employer]) . 02 Note: Note 02 The Pap smear is a screening test designed to aid in the detection of premalignant and malignant conditions of the uterine cervix. It is not a diagnostic procedure and should not be used as the sole means of detecting cervical cancer. Both false-positive and false-negative reports do occur. Test Methodology: Note 02 This liquid based ThinPrep(R) pap test was screened with the use of an image guided system. HPV Genotype Reflex Note 02 Criteria not met, HPV Genotype not performed. FLAG LEGEND: L-Low Normal,H-High Normal,LL-Alert Low,HH-Alert High <-Panic Low,>-Panic High,A-Abnormal,AA-Critical Abnormal Performed at: [address] [address] Kerry Kelley MD, BRUSH-SPATULA CERVIX ENDOCERVIX [facility] Healthcar e HCG ( test) Ql (U)o n 05-17-2025 Interpretation and review of laboratory results Normal [facility] Healthcare Preg Test, Ur Negative Negative [facility] care [facility] Juan 05-17-2025 L - -------- Specimen: [id number] Received: 05/18/25 Status: KRYSTA Draper Num: [id number] Spec Type: Surgical Subm Dr: Kris Abreu Tissues: A Endometrium - Biopsy (ENDOMETRIUM BX) Procedures: HE/2, Gross/Micro L4 -------- Age/ Patient Sex Location Account Attending Physician -------- Karis Duval 34/F LABELL [id number] Kris Abreu -------- SPEC NUM: [id number] RECD: 05/18/25 STATUS: KRYSTA DRAPRE NUM: [id number] MARÍA: 05/17/25-[address] [facility] [address]: Kris Abreu ENTERED: 05/18/[address] [facility] [address]: Raysa Geller SPEC TYPE: Surgical DEPT: [place] [facility] ENTERED BY: [id number] RECV BY: [id number] ORDERED: HE/2, Gross/Micro L4 ORDERED: HE/2, Gross/Micro [...] submitted in a single cassette. (1, ns, [id number]) Microscopic Description Microscopic examination is performed. -------- Specimen: [id number] Received: 05/18/25 Status: KRYSTA Draper Num: [id number] Spec Type: Surgical Subm Dr: Kris Abreu Tissues: A Endometrium - Biopsy (ENDOMETRIUM BX) Procedures: HE/2, Gross/Micro L4 -------- Patient: Karis Duval [id number] (Continued) -------- Specimen: [id number] Received: 05/18/25 (Continued) Signed (signature on file) Jovan Hoover MD 05/19/25 1115 -------- Specimen: [id number] Received: 05/18/25 Status: KRYSTA Draper Num: [id number] Spec Type: Surgical Subm Dr: Kris Abreu Tissues: A Endometrium - Biopsy (ENDOMETRIUM BX) Procedures: HE/2, Gross/Micro L4 -------- Patient: Karis Duval [id number] (Continued) -------- Specimen: [id number] Received: 05/18/25 (Continued) CPT Codes 02922 -------- -------- Specimen: [id number] Received: 05/18/25 Status: KRYSTA Draper Num: [id number] Spec Type: Surgical Subm Dr: Kris Abreu Tissues: A Endometrium - Biopsy (ENDOMETRIUM BX) Procedures: HE/2, Gross/Micro L4 -------- Patient: Karis Duval [id number] (Continued) -------- Signed (signature on file) Jovan Hoover MD 05/19/25 1115 Normal [facility] Comprehensive metabolic pane juan 03-31-2025 Albumin [Mass/Vol] 4.7 g/dL 3.2 - 5.3 g/dL [facility] ALP [Catalytic activity/Vol] 63 U/L 39 - 130 U/L [facility] ALT No additional P-5'-P [Catalytic activity/Vol] 12 U/L NINF - 31 U/L [facility] Anion gap [Moles/Vol] 11 mmol/L 5 - 15 mmol/L [facility] AST [Catalytic activity/Vol] 16 U/L NINF - 41 U/L [facility] Bilirubin [Mass/Vol] 0.2 mg/dL Low 0.3 - 1 .2 mg/dL [facility] Calcium [Mass/Vol] 9.9 mg/dL 8.5 - 10. 5 mg/dL [facility] Chloride [Moles/Vol] 105 mmol/L 98 - 10 9 mmol/L [facility] CO2 [Moles/Vol] 23 mmol/L 22 - 32 mmol/L [facility] Creatinine [Mass/Vol] 0.66 mg/dL 0.40 - 1.00 mg/dL [facility] Comment on above: METHOD TRACEABLE TO IDID STANDARD EGFR Non-Race Dependent - PINF [facility] Comment on above: Reported eGFR is bas ed on the CKD-EPI 2020 equation that does not use a race coefficient. Glucose [Mass/Vol] 91 mg/dL 65 - 99 mg/dL [facility] Potassium [Moles/Vol] 4.2 mmol/L 3.5 - 5.0 mmol/L [facility] Protein [Mass/Vol] 7.5 g/dL 6.0 - 8.0 g/dL [facility] Sodium [Moles/Vol] 139 mmol/L 134 - 146 mmol/L [facility] Urea nitrogen [Mass/Vol] 16 mg/dL 5 - 23 mg/dL [facility] Lipid profileon 03-31-2025 Cholesterol [Mass/Vol] 204 mg/dL High 150 - 200 mg/dL [facility] Cholesterol in HDL [Mass/Vol] 63 mg/dL 39 - PINF mg/dL [facility] Comment on above: HDL <40 mg/dL - High Risk HDL > or = 40mg/dL- Desirable HDL >60 mg/dL - Negative Risk Cholesterol in HDL [Mass/Vol] 3.2 mg/dL 1.0 - 5.0 [facility] Cholesterol in LDL [Mass/Vol] 108 mg/dL NINF - 130 mg/dL [facility] Comment on above: LDL <100 mg/dL - Dani irable LDL >160 mg/dL - High Risk Cholesterol in VLDL [Mass/Vol] 33 mg/dL High 0 - 30 mg/dL [facility] Triglyceride [Mass/Vol] 163 mg/dL High 27 - 150 mg/dL [facility] No Panel Informationon 03-31 Interpretation and review of laboratory results Abnormal [facility] Vital Signs Date Time Vital Sign Value Performing Clinician Facility 06-07-2025 14:02-0400 Body mass index (BMI) [Ratio] 27.27 kg/m2 Kris Lois DO Work Phone: [facility] 06-07-2025 14:02-0400 Body weight 67.64 kg Kris Lois DO Work Phone: [facility] 06-07-2025 14:02-0400 Diastolic blood pressure 74 mm[Hg] Kris Olis DO Work Phone: [facility] 06-07-2025 14:02-0400 Systolic blood pressure 116 mm[Hg] Kris Lois DO Work Phone: [facility] 05-17-2025 16:04-0400 Body mass index (BMI) [Ratio] 27.25 kg/m2 Kris Lois DO Work Phone: [facility] 05-17-2025 16:04-0400 Body weight 67.59 kg Kris Lois DO Work Phone: [facility] 05-17-2025 16:04-0400 Diastolic blood pressure 80 mm[Hg] Kris Lois DO Work Phone: [facility] 05-17-2025 16:04-0400 Systolic blood pressure 120 mm[Hg] Kris Lois DO Work Phone: [facility] 04-29-2025 08:33-0400 Body height 157.5 cm Kris Lois DO Work Phone: [facility] 04-29-2025 08:33-0400 Body mass index (BMI) [Ratio] 27.07 kg/m2 Kris Lois DO Work Phone: [facility] 04-29-2025 08:33-0400 Body weight 67.13 kg Kris Lois DO Work Phone: [facility] 04-29-2025 08:33-0400 Diastolic blood pressure 72 mm[Hg] Kris Lois DO Work Phone: [facility] 04-29-2025 08:33-0400 Systolic blood pressure 118 mm[Hg] Kris Lois DO Work Phone: [facility] 03-31-2025 08:53-0400 Body height 157.5 cm Cam Furlong DO Work Phone: [facility] 03-31-2025 08:53-0400 Body mass index (BMI) [Ratio] 27.21 kg/m2 Cam Furlong DO Work Phone: [facility] 03-31-2025 08:53-0400 Body temperature 98.2 [degF] Cam Furlong DO Work Phone: [facility] 03-31-2025 08:53-0400 Body weight 67.5 kg Cam Furlong DO Work Phone: [facility] 03-31-2025 08:53-0400 Diastolic blood pressure 60 mm[Hg] Cam Furlong DO Work Phone: [facility] 03-31-2025 08:53-0400 Heart rate 88 /min Cam Furlong DO Work Phone: [facility] 03-31-2025 08:53-0400 Respiratory rate 20 /min Cam Furlong DO Work Phone: [facility] 03-31-2025 08:53-0400 SaO2% (BldA) [Mass fraction] 98 % Cam Furlong DO Work Phone: [facility] 03-31-2025 08:53-0400 Systolic blood pressure 108 mm[Hg] Cam Furlong DO Work Phone: [facility] 07-15-2024 10:20-0400 Body height 157.5 cm Cam Furlong DO Work Phone: [facility] 07-15-2024 10:20-0400 Body mass index (BMI) [Ratio] 28.53 kg/m2 Cam Tinychatlong DO Work Phone: [employer] 07-15-2024 10:20-0400 Body temperature 98.49 [degF] Cam Navarrolong DO [facility] 07-15-2024 10:20-0400 Body weight 70.76 kg Cam Navarrolong DO [facility] 07-15-2024 10:20-0400 Diastolic blood pressure 70 mm[Hg] Cam [facility]rolong DO [facility] Phone: [facility] 07-15-2024 10:20-0400 Heart rate 85 /min Cam NavarroMagzter DO Work Phone[facility] 07-15-2024 10:20-0400 SaO2% (BldA) [Mass fraction] 95 % Cam NavarroCloudWalkng DO Work Phone: [facility] 07-15-2024 10:20-0400 Systolic blood pressure 112 mm[Hg] Cam RamonMagzter DO Work Phone: [facility] [employer] Encounters Encounter Date Encounter Type Care Provider Facility Start: 06-07-2025 End: 06-11-2025 [facility] Result Encounter Kris Lois DO Work Phone: [facility] Unsolicited Start: 06-07-2025 End: 06-11-2025 [facility]inis[facility] Result Encounter Kris Lois DO Work Phone: [facility] Unsolicited Start: 06-07-2025 End: 06-07-2025 Patient encounter procedure Kris Lois DO Work Phone: [facility] Work Phone: Start: 06-07-2025 End: 06-07-2025 Periodic preventive med est patient 18-39 yrs Kris Lois DO Work Phone: [facility] Comment on above: Pre-op examination; Request for sterilization; Menorrhagia with regular cycle; Abnormal uterine bleeding (AUB); Pelvic pain; Well woman exam with routine gynecological exam Start: 06-07-2025 End: 06-07-2025 Preprocedural examination done Kris Lois DO Work Phone: [facility] Start: 06-07-2025 End: 06-07-2025 ambulatory KRIS LOIS Not Available Start: 05-17-2025 End: 05-17-2025 Departed Referred Kris Lois -LAB [facility] Start: 05-17-2025 End: 05-17-2025 ambulatory Kris Lois [facility] Work Phone: Start: 05-17-2025 End: 05-17-2025 Patient [...] End: 04-12-2025 Telephone encounter Brittnee Lopez CMA [facility] Start: 03-31-2025 End: 03-31-2025 Patient encounter status Cam Delcid Jose DO Work Phone: [facility] [employer] Start: 03-31-2025 End: 03-31-2025 Periodic preventive med est patient 18-39 yrs Cam Garcia DO Work Phone: [facility] Comment on above: Well adult health ch david (Primary Dx); Dysmenorrhea; Anxiety; Cigarette smoker; Menorrhagia with regular cycle; Mild major depression; Mild intermittent asthma without complication; Overweight (BMI 25.0-29.9) Start: 01-12-2025 End: 01-12-[address] [facility] Start: 09-01-2024 End: 09-01-2024 Refill Cam Garcia DO Work Phone: [facility] Start: 07-15-2024 End: 07-15-2024 Office outpatient new 45 minutes Cam Garcia DO Work Phone: [facility] Comment on above: Anxiety (Primary Dx) ; Overweight; Cigarette smoker; Moderate major depression (CMS-HCC); Reactive airway disease without complication, unspecified asthma severity, unspecified whether persistent Start: 03-18-2023 End: 03-18-2023 ambulatory PA CIELO PATEL . Facility: Procedures Date Procedure Procedure Detail Performing Clinician Start: 06-07-2025 IGP,APTIMA HPV,AGE GDLN Kris Riverao DO Work Phone: Start: 05-17-2025 Urine test visual color cmprsn meths Kris Gutierrezzio DO Work Phone: Start: 03-31-2025 Comprehensive metabo lic panel Cam Garcia DO Work Phone: Start: 03-31-2025 Lipid panel Cam de DO Work Phone: Start: 03-31-2025 Adult depression scr eening assessment Cam Garcia DO Work Phone: Start: 07-15-2024 Adult depression scr eening assessment Cam Garcia DO Work Phone: Plan of Treatment Date Care Activity Detail Author Start: 09-30-2026 Tobacco Counseling Tobacco Counseldanilo declid [facility] Start: 03-31-2026 Adult BMI Follow Up Plan Adult BMI F ollow Up Plan [facility] Start: 03-31-2026 Adult BMI Screening Adult BMI Screen ing [facility] Start: 03-31-2026 Depression Screening Depression Scre ening [facility] Start: 03-31-2026 Tobacco Screening Tobacco Screening [facility] Start: 07-15-2025 Adult BMI Screening Adult BMI Screen ing [facility] Start: 07-15-2025 Depression Screening Depression Scre ening [facility] Start: 07-15-2025 Tobacco Screening Tobacco Screening [facility] Start: 07-08-2025 End: 07-08-2025 Patient encounter procedure 07/08/2025 8:40 AM EDT Office Visit [facility] [address] [place] [id number] Kris Abreu, DO [address] [place] [address] [facility] Start: 06-21-2025 Influenza vaccination Influenza Vacc ine [facility] Start: 06-03-2025 End: 06-03-2025 Patient encounter procedure 06/03/2025 9:00 AM EDT Office Visit [facility] [address] [place] [address] Cam Garcia, DO [address] [place] [address] [facility] Start: 06-02-2025 End: 06-02-2025 Patient encounter procedure [facility] Start: 05-17-2025 End: 05-17-2025 Patient encounter procedure 05/17/2025 3:30 PM EDT Procedure Visit [facility] [address] [place] [id number] Kris Abreu, DO [address] [place], [place] [id number] [facility] Start: 04-29-2025 End: 04-29-2026 [...] EDT Office Visit [facility] [address] [facility] [place] [id number] Kris Abreu DO [address] [facility] [place] [address] Arrived [facility] Comment on above: Arrived Start: 01-18-2025 End: 01-18-2025 Patient encounter procedure 01/18/2025 4:15 PM EDT Office Visit [facility] [address] [place] [address] Cam Garcia, DO [address] [place] [address] [facility] Start: 06-21-2024 Influenza vaccination Influenza Vacc ine [facility] Start: 2012 Screening for malign ant neoplasm of cervix Pap Smear [facility] Start: 2010 DTaP,Tdap and Td Vaccines (1 - Tdap) DTaP,Tdap and Td Vaccines (1 - Tdap) [facility] Start: 2009 Adult BMI Follow Up Plan Adult BMI F ollow Up Plan [facility] Start: 1991 Tobacco Counseling Tobacco Counselin g [facility] CBC W Auto Different ial panel - Blood CBC and differential Lab Routine Irregular periods/menstrual cycles Ordered: 04/29/2025 [facility] Comment on above: Ordered: 04/29/2025 Cytology Cervical or vaginal smear or scraping study Pap Smear Pathology and Cytology Routine Well woman exam with routine gynecological exam Ordered: 06/07/2025 [facility] [employer] Work Phone: Comment on above: Ordered: 06/07/2025 DHEA-sulfate DHEA-sulfate Lab Routine Irregular periods/menstrual cycles Ordered: 04/29/2025 [facility] Comment on above: Ordered: 04/29/2025 Follicle stimulating hormone Follicle stimulating hormone Lab Routine Irregular periods/menstrual cycles Ordered: 04/29/2025 [facility] Comment on above: Ordered: 04/29/2025 hCG, quantitative, hCG, quantitative, Lab Routine Irregular periods/menstrual cycles Ordered: 04/29/2025 [facility] [employer] Work Phone: Comment on above: Ordered: 04/29/2025 Hemoglobin A1c/Hemoglobin.total in Blood Hemoglobin A1c Lab Routine Irregular periods/menstrual cycles Ordered: 04/29/2025 [facility] Comment on above: Ordered: 04/29/2025 Human papilloma viru s DNA [Presence] in Unspecified specimen by Probe with amplification HPV DNA probe, amplified Microbiology Routine Well woman exam with routine gynecological exam Ordered: 06/07/2025 [facility] Comment on above: Ordered: 06/07/2025 Luteinizing hormone Luteinizing hormone Lab Routine Irregular periods/menstrual cycles Ordered: 04/29/2025 [facility] Comment on above: Ordered: 04/29/2025 End: 07-15-2025 [...] persistent 1 Occurrences starting 07/15/2024 until 07/15/2025 [employer] Work Phone: Comment on above: 1 Occurrences starti ng 07/15/2024 until 07/15/2025 Thyrotropin [Units/volume] in Serum or Plasma TSH Lab Routine Irregular periods/menstrual cycles Ordered: 04/29/2025 [facility] Comment on above: Ordered: 04/29/2025 Thyroxine (T4) free [Mass/volume] in Serum or Plasma T4, free Lab Routine Irregular periods/menstrual cycles Ordered: 04/29/2025 [facility] Comment on above: Ordered: 04/29/2025 Tissue exam Tissue exam Path ology and Cytology Routine Irregular menstrual cycle Ordered: 05/17/2025 [facility] Work Phone: Comment on above: Ordered: 05/17/2025 Payers Date Payer Category Payer Self-pay 2025 Private Health Insurance [facility] [id number] 2025 Medicaid [id number] 2024 Medicaid HMO [facility] [id number] 2024 Medicaid [id number] 1991 Unknown [id number] 1991 Unknown [id number] 1991 Unknown [id number] 1991 Unknown [id number] 1959 Medicaid [id number] Unknown [id number] Social History Date Type Detail Facility Start: 10-21-2003 Tobacco smoking stat [facility] Smokes tobacco daily [facility] Start: 10-21-2003 End: 10-21-2008 History of tobacco use Cigarette Smoker [facility] Start: 07-15-2024 End: 03-31-2025 Cigarettes smoked current (pack per day) - Reported 0.1 [facility] Start: 07-15-2024 Tobacco use and exposure Smokeless tobacco non-user [facility] Start: 07-15-2024 End: 03-31-2025 Alcoholic beverage intake Current drinker of alcohol (finding) [facility] Start: 07-15-2024 End: 03-31-2025 [facility] [employer] [facility] Has the delicious, or Perfect[employer] threatened to shut off services in your home in past 12Mo No [facility] Are you now , , , , never or living with a partner? [facility] How often to you hav e a drink containing alcohol? 2-4 times a month [facility] How many standard drinks containing alcohol do you have on a typical day? 3 or 4 [facility] How often do you hav e 6 or more drinks on 1 occasion? Never [facility] How hard is it for y ou to pay for the very basics like food, housing, medical care, and heating Not hard at all [facility] Do you feel stress - tense, restless, nervous, or anxious, or unable to sleep at night because your mind is troubled all the time - these days [OSQ] Rather much [facility] Start: 07-15-2024 Tobacco Comment Off and on smo ker from . She would stop smoking with her pregnancies then restart [facility] [employer] [facility] Start: 07-15-2024 Alcohol [facility] Start: 1990 Sex assigned at Not on file P [employer] [facility] Start: 05-26-2015 Sex Female (finding) [facility] Tobacco smoking stat [facility] Tobacco smoking consumption unknown [facility] Start: 1990 Sex Assigned At Female F [facility] Functional Status Date Assessment Result Facility 03-31-2025 Total score [AUDIT-C] 3 03/31/20 9:27 AM EDT Cam Garcia, DO [facility] Clinical Notes 07-15-2024 to 06-07-2025 Laurence Joyce - 06/07/2025 2:00 PM EDTBarbara Byers NP - 05/17/2025 3:30 PM EDEfren Monroe LPN - 04/29/2025 8:50 AM EDTTelephone [...] on 06-25-[address] Abreu at [facility]. MEDICATIONS Current Outpatient Medications Medication Instructions [...] W/ FILCHIE CLIPS Bilateral 2019 Done in [place] REVIEW OF SYSTEMS Review of Systems: Review [...] nursing note reviewed. Exam conducted with a mortgage analyst present. Vitals: Estimated body mass index is [...] reviewed, and patient is to proceed to [facility] OR. Follow Up: Patient is to follow up between 1-2 weeks post operative to assess proper healing and recovery from procedure. *-*Patient is to not lift heavy for at least 10 days after surgery*-* return to work 07/05/25 after procedure Documented by Beth Monroe LPN on behalf of: Kris Abreu DO documented in this encounter [facility] 05-17-2025 History of Presen t illness Narrative [...] W/ FILCHIE CLIPS Bilateral 2020 Done in [place] REVIEW OF SYSTEMS Review of Systems: Review [...] Abreu DO documented in this encounter [facility] 04-29-2025 History of Presen t illness Narrative [...] W/ FILCHIE CLIPS Bilateral 2020 Done in [place] REVIEW OF SYSTEMS Review of Systems: Review [...] nursing note reviewed. Exam conducted with a mortgage analyst present. Vitals: Estimated body mass index is [...] her pain. Pt has clotting and in [place] had a salpingectomy w/FILCHE CLIPS. Discussed procedure with patient in regards to surgical management with Ablation with Salpingectomy. Patient to have labs and US will be obtained. Patient will schedule Endometrial Biopsy and US prior to leaving office today. Documented by Beth Monroe LPN on behalf of: Kris Abreu DO documented in this encounter [facility] 04-02-2025 Miscellaneous Notes Formattin g of this [...] DO Patient notified documented in this encounter [facility] 04-02-2025 Telephone encount er Note ----- [...] 6:26 PM EDT To: Cam Garcia DO [facility] 04-02-2025 Telephone encount er Note [email or web address] 03-31-2025 History of Presen t illness [...] would like to establish with a local barrel straightener for her female exams. We will send a referral to the barrel straightener at [facility]. 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 documented in this encounter [facility] 01-12-2025 Miscellaneous Notes Formattin g of this note might be different from the original. Prescription sent in. She is due for a wellness anytime. She was only seen once for new patient visit back in June documented in this encounter [facility] 01-12-2025 Telephone encount er Note Prescription sent in. She is due for a wellness anytime. She was only seen once for new patient visit back in June [facility] 07-15-2024 History of Presen t illness [...] put on. She was told by the CUSTOM FRAME ASSEMBLER that it might cause pain down the [...] she had allergies. She is originally from [place] and moved up here recently. She was [...] at that time. documented in this [facility] Evaluation note Diagnosis Anxiety- Primary Anxiety state, unspecified Overweight Cigarette smoker Tobacco use disorder Moderate major depression (CMS-HCC) Major depressive disorder, single episode, moderate Reactive airway disease without complication, unspecified asthma severity, unspecified whether persistent [facility] Diagnosis Well adult health [...] syndrome) Polycystic ovaries documented in this encounter [facility] HealthcareEvaluation note* Diagnosis Irregular menstrual cycle documented in this encounter [facility] HealthcareEvaluation noteNo assessment information availableMercy Health [facility] Work Phone: Evaluation note* Diagnosis Pre-op examination Request for sterilization Menorrhagia with regular cycle Abnormal uterine bleeding (AUB) Pelvic pain Well woman exam with routine gynecological exam Routine gynecological examination documented in this encounter [facility] HealthcareInstructionsNot on filedocumented in this [facility]ructionsNot on filedocumented in this encounterPro[facility] SystemInstructionsNot on filedocumented in this encounterPro[facility]ica [facility] SystemInstructionsNot on filedocumented in this [facility] InstructionsNot on filedocumented in this encounterProMedica Health SystemReason for referral (narrative)No reason for referral information availableMercy Health [facility] Work Phone: Summary Purpose Family History No Family History Records FoundNo Family History Records FoundNo Family History Records Found Advance Directives No Advanced Directives Records FoundNo Advanced Directives Records FoundNo Advanced Directives Records Found Additional Source Comments INFORMATION SOURCE (unrecogn ized section and content) DATE CREATED AUTHOR 03/29/2023 [facility] DATE CREATED AUTHOR AUTHOR'S ORGANIZ ATION 05/20/2025 [facility] DATE CREATED AUTHOR AUTHOR'S ORGANIZ ATION 06/08/2025 [facility] EPIC Reason for Visit (unrecogniz [...] Care Teams (unrecognized sec tion and content) Airport Electrician Relationship Specialty Start Date End Date Cam Garcia DO [address], [place] [address] PCP - General Family Medicine 07/15/24 Airport Electrician Relationship Specialty Start Date End Date Cam Garcia DO [address], [place] [address] PCP - General Family Medicine 07/15/24 Airport Electrician Relationship Specialty Start Date End Date Cam Garcia DO [address] [place] [address] PCP - General Family Medicine 07/15/24 Airport Electrician Relationship Specialty Start Date End Date Cam Garcia DO [address] [place] [address] PCP - General Family Medicine 07/15/24 Airport Electrician Relationship Specialty Start Date End Date Cam Garcia DO [address] [place] [address] PCP - General Family Medicine 07/15/24 Airport Electrician Relationship Specialty Start Date End Date Cam Garcia MD [address] [place] [address] PCP - General Family Medicine 04/29/25 Airport Electrician Relationship Specialty Start Date End Date Cam Garcia MD [address] [place] [address] PCP - General Family Medicine 04/29/25 Airport Electrician Relationship Specialty Start Date End Date Cam Garcia MD [address] [place] [address] PCP - General Family Medicine 04/29/25 Team Status: Inactive Member Role Status Dates Kris Abreu DO Attending Provider Active Start : May 17, 2025 End: May 17, 2025 Airport Electrician Relationship Specialty Start Date End Date Cam Garcia MD [address] [place] [address] PCP - General Family Medicine 04/29/25 Airport Electrician Relationship Specialty Start Date End Date Cam Garcia MD [address] [place] [address] PCP - General Family Medicine 04/29/25 Goals [...] BE BASED ON THE PRIMARY CLINICAL RECORDS. [employer] [facility]. provides no warranty or guarantee of the accuracy or completeness of information in this document.
[2025-06-25 08:27] LABS: Hematocrit 39.5 % (36.0-48.0); Hemoglobin 13.5 g/dL (12.0-16.0); Immature Granulocytes Abs Auto 0.03 10^3/uL (0.00-0.03); Immature Granulocytes Pct Auto 0.3 % (0.0-0.5); Lymphocytes Absolute Auto 2.3 10^3/uL (1.2-3.8); Mean Corpuscular HGB Conc 34.2 g/dL (29.9-35.2); Mean Corpuscular Hemoglobin 28.3 pg (26.7-34.0); Mean Corpuscular Volume 82.8 fL (81.0-99.0); Platelet Count 283 10^3/uL (150-450); Red Blood Count 4.77 10^6/uL (4.20-5.40); White Blood Count 9.3 10^3/uL (4.0-11.0)
--- NOTE | 2025-06-25 11:53 | PM.ONB ---
Brief Operative Note Date of procedure: 06/25/25 Pre-op diagnosis general: pelvic pain, menorrhagia Post-op diagnosis: same as pre-op Procedure: NAME OF PROCEDURE: robotic assisted Laparoscopic bilateral salpingectomy, with Whitley endometrial ablation with hysteroscopy removal of one filschie clip PROCEDURE: The patient was taken back to the OR where she was prepped and draped in the normal sterile fashion after being placed in the dorsal lithotomy position, after being placed under general anesthesia without difficulty. a weighted speculum was then placed into the vagina. Pap and endometrial bx were performed without difficultyThe anterior lip was grasped with a single tooth tenaculum. The patient was then sounded to approximatley 9cm. The patient was gently sounded using Hegar dilators and the hysteroscope was passed through the cervix into the uterus where both ostia were seen. No gross evidence of polyps, fibroids or malignancy. The cervical length was noted to be 4cm. The Whitley ablation apparatus was set to approximately 5cm in length. This was placed in through the cervix and into the uterus. After the seal was tested, at that time the total ablation of 120 seconds was performed with the Whitley without difficulty. All instruments were removed from the vagina. A wet sponge stick was placed into the patient's vagina. Attention was then turned to the patient's abdomen, where a scalpel was used to make a small infraumbilical incision. The S retractors were then used to dissect the underlying layers until the fascia could be seen. The fascia was then grasped with Mi clamps and tented up. A knife was then used to make a small incision to the fascia. The muscle was identified, at that time two sutures of #0 Vicryl on a GI needlewas then used and placed through the fascia. The peritoneum was then identified and entered bluntly. The 10-4 Pb was then placed into the patient's abdomen. This was confirmed with direct visualization of the bowel, using the laparoscope. The patient's abdomen was then insufflated using approximately 4 liters of CO2 gas. Survey of the patient's abdomen demonstrated normal appearing ovaries, uterus and tubes. A second and third lateral robotic ports, which was 8mm in size, was then placed laterally after incision was made in the skin under direct visualization. the robotic arms were engaged. The patient's tube on the patient's right side was identified. The tube was then tented up using a grasper. The ligasure was used to transect and coagulate the mesosalpingx from the fimbriated end to the insertion at the uterus, the tube was amputated and removed in its entirety.? Excellent hemostasis was noted. ?This was performed on the contralateral sideas well. one filschie clip found in posterior culdesac and was removed, The lateral ports were then moved under direct visualization with excellent hemostasis. The abdomen was deinsufflated. All instruments were removed from the patient's abdomen. The fascia was closed using the #0 Vicryl on GI needle. The skin was closed using 4-0 Vicryl subcuticularly. All instruments were removed from the patient's vagina as well. The patient was taken out of the dorsal lithotomy position and placed in the supine position and taken to recovery in stable condition. Sponge, lap and needle counts were correct x2. ??? Anesthesia: YOSI Surgeon: Vaibhav Abreu Education Diagnostician: Milvia Narvaez Estimated blood loss (mL): 5 Pathology: other (tubes) Condition: stable Disposition: PACU
[2025-06-25] MEDS: HYDROCODONE/ACET 5-325 MG TABLET 1 TAB PO (13:46)
== END 2025-06-25 13:48 | disposition home or self-care (01) ==
LOC: SURGOUT 08:10
PROVIDERS: PCP Family Medicine; Visit Provider Obstetrics & Gynecology
PROC: (CPT 840; principal; 2025-06-25 09:45)
DX: Z30.2 Encounter for sterilization (principal); N92.0 Excessive and frequent menstruation with regular cycle; N93.9 Abnormal uterine and vaginal bleeding, unspecified; R10.2 Pelvic and perineal pain; N70.11 Chronic salpingitis; F17.210 Nicotine dependence, cigarettes, uncomplicated; J45.909 Unspecified asthma, uncomplicated; F41.9 Anxiety disorder, unspecified; F32.A Depression, unspecified
CPT/HCPCS: 58563; 58661; 36415; 84702; 85025; J0131; J1100; J1171; J1885; J2250; J2371; J2405; J2704; J3010